=== PATIENT | female | born 2005 | race Asian ===

== ENCOUNTER 2024-01-18 22:45 | Inpatient (IN) ==
[2024-01-18] MEDS: levETIRAcetam 500 MG/5 ML VIAL IV STA (23:14)
[2024-01-18 23:15] LABS: Hematocrit (blood only) 42.3 % (37.0-47.0); Mean Corpuscular Hemoglobin 29.9 pg (25.0-34.0); Mean Corpuscular Hgb Conc 33.1 g/dL (32.0-36.0); Mean Corpuscular Volume 90.2 fL (80.0-100.0); Mean Platelet Volume 8.5 fL (9.4-12.4); Platelet Count 272 K/uL (130-400); RDW Coefficient of Variation 11.9 % (11.5-14.5); RDW Standard Deviation 38.6 fL (36.4-46.3); Red Blood Count 4.69 M/uL (4.20-5.40); White Blood Count 9.44 K/ul (4.8-10.8)
[2024-01-18] MEDS: LORazepam 1 MG/1 ML SYR ED Inj Use ONE (23:15)
[2024-01-18] MEDS: LORazepam 2 MG/1 ML VIAL IV STA (23:15)
--- NOTE | 2024-01-18 23:18 | Emergency Department Note ---
Impression & Plan Seizure, Overdose admit to the ICU ED Provider Note NAME: ARY GARCIA AGE: 18 SEX: Female INFORMANT: EMS ED PROVIDER(S): Ariane Lane DO CHIEF COMPLAINT: seizure PLAN: Disposition: admit to the ICU MEDICAL DECISION MAKING: this is a 18-year-old female patient who suffered a seizure at the library on campus. For EMS, the patient vomited a bright green substance. No other past medical history or HPI was available. Her belongings were searched and no medications were found. We attempted to contact the [place] to make contact with next of kin but she had no emergency contact listed. The patient suffered a second seizure here in the emergency department which was self-limited. She went for CT scan of the brain and facial bones. No intracranial process was noted. She had some trauma to the left side of her face but no facial bone fractures were noted. She was given a dose of IV Ativan and IV Keppra along with IV normal saline solution. Laboratory studies revealed no leukocytosis or anemia. Urine drug screen was negative. Glucose was 109. was negative. Anion gap was 14. Alcohol level was 0. Aspirin and Tylenol levels were 0. As the patient became less obtunded, she appeared to be having visual hallucinations and were picking at things that were not there. She remained tachycardic and somewhat anticholinergic. With repetitive questioning, she did admit to taking medications and stated that she had not been sleeping and took Benadryl. This presentation does seem consistent with a Benadryl overdose but will not know for sure until she is more awake. The patient remained hemodynamically stable. At one Point the patient was insistent upon getting out of the bed and was given a second dose of IV Ativan and rested more comfortably. The case was discussed with staff from the ICU as well as the [facility] Triage Nursing notes: reviewed and agree with them. Vital Signs: reviewed and remarkable for tachycardia and tachypnea Additional History obtained from: EMS Differential Diagnosis: status epilepticus, drug withdrawal, drug overdose, suicide attempt, anticholinergic response, intracranial hemorrhage, intracranial mass Diagnostics, independently interpreted by me: ECG: sinus tachycardia at a rate of [address] segment depression in inferior and lateral leads. There was no ectopy. QTc was 580 Cardiac Monitoring: Sinus tachycardia at 129 Imaging studies: CT scan of the brain: As per stat rad CT scan of the facial bones: As per stat rad HPI: 18 year old Female arrives for evaluation of seizure. suffered a seizure at the library on campus. For EMS, the patient vomited a bright green substance. No other past medical history or HPI was available. . PAST MEDICAL HISTORY: unknown due to unresponsiveness PAST SURGICAL HISTORY: unknown, SOCIAL HISTORY: [employer] student, HOME MEDICATIONS: unknown ALLERGIES: unknown VITALS: See Below PHYSICAL EXAMINATION: HEENT: Head - normocephalic With an abrasion and hematoma noted over the left orbit. Pupils are Dilated at 8 mm and only slightly reactive. Extraocular eye muscles are intact, and sclera are anicteric. patient has significant lateral nystagmus that was unprovoked. Nose - moist nasal mucosa without discharge. Mouth - moist buccal mucosa. Oropharynx is nonerythematous and there is no tonsillar exudate or edema noted. Neck: Supple; no JVD, nuchal rigidity, cervical lymphadenopathy. Heart: Tachycardic rate and regular rhythm. There is a normal S1 and S2 with no murmurs, clicks, or gallops appreciated. Lungs: Clear to auscultation bilaterally with no wheezes, rales, or rhonchi. Abdomen: Soft, completely nontender, nondistended, with good bowel sounds. There are no palpable pulsatile masses or hepatosplenomegaly. There is no guarding, rigidity, or rebound noted. Extremities: No evidence of cyanosis, clubbing, or edema. There are easily palpable peripheral pulses. Skin: warm and dry with good turgor and no rashes. Psych: At times the patient is reaching for things that are not there and appears to be having visual hallucinations. She is quite tremulous. Emergency department treatment: Seizure precautions were taken, compliance monitor, IV normal saline bolus, IV Ativan, IV Keppra, IV normal saline bolus, IV normal saline drip, IV Ativan emergency department course: The patient was evaluated in room C-7. A complete history and physical was performed. Seizure precautions were taken. Patient began to seize upon her arrival. This seizure was tonic-clonic in nature. She was given 0.5 mg of IV Ativan. A second IV lock was initiated and labs are drawn as above. A urine specimen was obtained. The patient went emergently for CT scan of her brain and facial bones. Upon returning from radiology, she was bolused with IV normal saline solution. She was loaded with IV Keppra. We made multiple attempts to identify emergency contacts for this patient. She had a toxicologic workup performed. Patient attempted to get out of the bed and was given another dose of IV Ativan. She had no further seizure activity while here in the ER. I have personally spent greater than 70 minutes of critical care time in the direct management of this patient. This includes bedside care, interpretation of diagnostic studies, and testing, discussion with consultants, patient, and family members, and other required patient management activities. This 70 minutes is in excess of all separately billable procedures. Past Med/Surg History Problem List (Updated 01/19/24 @ 17:[address] DO) Overdose (Acute) Seizure (Acute) Toxic metabolic encephalopathy Overdose Seizure Social History Smoking Status: Unknown if ever smoked Second Hand Exposure: No; Do You Dip or Chew Tobacco: No; Hx Alcohol Use: No (unable to answer) Hx Substance Use: No Preferred Language: Swiss Communication Ability: Impaired Asset Protection Greeter Required: No Beliefs That Will Affect Care: None Current Living Situation: Alone Feels Safe at Home: Yes Assistive Devices: None Allergies Allergies Allergy/AdvReac Type Severity Reaction Status Date / Time peanut Allergy Unknown Verified 01/19/24 14:52 Results & Data (ED) Vital Signs Vital Signs - 24 hr 01/18/24 22:46 01/18/24 22:55 01/18/24 23:28 Pulse Rate 133 H 133 H Pulse Rate [Right Finger] 129 H Pulse Rhythm Regular Pulse Rhythm [Right Finger] Regular Pulse Strength Normal Pulse Strength [Right Finger] Normal Respiratory Rate 37 H 37 H Respiratory Effort / Characteristics Non-Labored Non-Labored Respiratory Depth Normal Normal Respiratory Pattern Regular Regular Blood Pressure 102/76 Blood Pressure [Right Arm] 114/61 Blood Pressure Mean 84 Blood Pressure Mean [Right Arm] 78 Blood Pressure Position Lying Blood Pressure Position [Right Arm] Lying Pulse Oximetry 96 96 Oxygen Delivery Method Room Air Room Air Sepsis Recent Fever Within 48 Hours No Sepsis New/Unexplained Change in Mental Status N/A Sepsis Action Taken by Nursing Physician Notified 01/19/24 01:36 Pulse Rate Pulse Rate [Right Finger] 108 H Pulse Rhythm Pulse Rhythm [Right Finger] Regular Pulse Strength Pulse Strength [Right Finger] Normal Respiratory Rate 30 H Respiratory Effort / Characteristics Non-Labored Respiratory Depth Normal Respiratory Pattern Regular Blood Pressure Blood Pressure [Right Arm] 121/84 Blood Pressure Mean Blood Pressure Mean [Right Arm] 96 Blood Pressure Position Blood Pressure Position [Right Arm] Lying Pulse Oximetry 97 Oxygen Delivery Method Room Air Sepsis Recent Fever Within 48 Hours Sepsis New/Unexplained Change in Mental Status Sepsis Action Taken by Nursing Laboratory Data 01/18/24 22:30 01/19/24 13:05 Lab Results 01/18/24 01/18/24 01/18/24 Range/Units 22:30 23:24 23:30 WBC 9.44 (4.8-10.8) K/ul RBC 4.69 (4.20-5.40) M/uL Hgb 14.0 (12.0-16.0) g/dl Hct 42.3 (37.0-47.0) % MCV 90.2 (80.0-100.0) fL MCH 29.9 (25.0-34.0) pg MCHC 33.1 (32.0-36.0) g/dL RDW Std Deviation 38.6 (36.4-46.3) fL RDW Coeff of Rommel 11.9 (11.5-14.5) % Plt Count 272 (130-400) K/uL MPV 8.5 L (9.4-12.4) fL Sodium 137 (136-145) mmol/L Potassium 3.5 (3.5-5.1) mmol/L Chloride 106 (98-107) mmol/L Carbon Dioxide 17 L (21-32) mmol/L Anion Gap 14 H (3-11) BUN 11 (6-23) mg/dl Creatinine 0.72 (0.6-1.2) mg/dl Est Cr Clr Drug Dosing 91.3 ml/min eGFR 122.68 BUN/Creatinine Ratio 15.3 (10-20) Glucose 109 H (70-99(Fasting)) mg/dl POC Glucose 85 (70-99) mg/dl Osmolality 291 (280-300) mOsm/kg Calcium 9.2 (8.6-10.3) mg/dl Phosphorus 3.1 (2.5-4.9) mg/dl Magnesium 1.9 (1.7-2.4) mg/dl Total Bilirubin 0.4 (0.2-1.0) mg/dl Direct Bilirubin 0.1 (0-0.2) mg/dl AST 18 (13-39) U/L ALT 11 (7-52) U/L Alkaline Phosphatase 50 (34-104) U/L Troponin I High Sens (0-14) pg/ml Total Protein 7.5 (6.0-8.3) gm/dl Albumin 4.8 (3.4-5.0) gm/dl Urine Color Urine Appearance (Clear) Urine pH (4.5-7.5) Ur Specific [place] (1.000-1.030) Urine Protein (Negative) Urine Glucose (UA) (Negative) Urine Ketones (Negative) Urine Blood (Negative) Urine Nitrite (Negative) Urine Bilirubin (Negative) Urine Urobilinogen (Negative) Ur Leukocyte Esterase (Negative) Urine WBC (Auto) (0-5) /hpf Urine RBC (Auto) (0-2) /hpf U Hyaline Cast (Auto) (0-2) /lpf U Epithel Cells (Auto) (0-2) /hpf Urine Bacteria (Auto) (None Seen) Urine Test Negative (Negative) Salicylates < 3.0 L (3.0-30) mg/dl Urine Opiates Screen Neg (Neg) Ur Methadone, Qual Neg (Neg) Urine Fentanyl Screen Neg (Neg) Acetaminophen < 3 L (10-30) ug/ml Urine Barbiturates Neg (Neg) Ur Phencyclidine (PCP) Neg (Neg) U Amphetamin/Meth Scrn Neg (Neg) MDMA (Ecstasy) Screen Neg (Neg) U Benzodiazepines Scrn Neg (Neg) Ur Cocaine Metabolite Neg (Neg) U Marijuana (THC) Screen Neg (Neg) Ethyl Alcohol mg/dL (<10.0) mg/dl 01/18/24 01/19/24 Range/Units 23:37 00:00 WBC (4.8-10.8) K/ul RBC (4.20-5.40) M/uL Hgb (12.0-16.0) g/dl Hct (37.0-47.0) % MCV (80.0-100.0) fL MCH (25.0-34.0) pg MCHC (32.0-36.0) g/dL RDW Std Deviation (36.4-46.3) fL RDW Coeff of Rommel (11.5-14.5) % Plt Count (130-400) K/uL MPV (9.4-12.4) fL Sodium (136-145) mmol/L Potassium (3.5-5.1) mmol/L Chloride (98-107) mmol/L Carbon Dioxide (21-32) mmol/L Anion Gap (3-11) BUN (6-23) mg/dl Creatinine (0.6-1.2) mg/dl Est Cr Clr Drug Dosing ml/min eGFR BUN/Creatinine Ratio (10-20) Glucose (70-99(Fasting)) mg/dl POC Glucose (70-99) mg/dl Osmolality (280-300) mOsm/kg Calcium (8.6-10.3) mg/dl Phosphorus (2.5-4.9) mg/dl Magnesium (1.7-2.4) mg/dl Total Bilirubin (0.2-1.0) mg/dl Direct Bilirubin (0-0.2) mg/dl AST (13-39) U/L ALT (7-52) U/L Alkaline Phosphatase (34-104) U/L Troponin I High Sens 4.0 (0-14) pg/ml Total Protein (6.0-8.3) gm/dl Albumin (3.4-5.0) gm/dl Urine Color Yellow Urine Appearance Clear (Clear) Urine pH 5.5 (4.5-7.5) Ur Specific [place] 1.019 (1.000-1.030) Urine Protein Trace H (Negative) Urine Glucose (UA) Negative (Negative) Urine Ketones Trace H (Negative) Urine Blood 2+ H (Negative) Urine Nitrite Negative (Negative) Urine Bilirubin Negative (Negative) Urine Urobilinogen Negative (Negative) Ur Leukocyte Esterase Negative (Negative) Urine WBC (Auto) 0-5 (0-5) /hpf Urine RBC (Auto) 0-2 (0-2) /hpf U Hyaline Cast (Auto) 0-2 (0-2) /lpf U Epithel Cells (Auto) 0-2 (0-2) /hpf Urine Bacteria (Auto) None Seen (None Seen) Urine Test (Negative) Salicylates (3.0-30) mg/dl Urine Opiates Screen (Neg) Ur Methadone, Qual (Neg) Urine Fentanyl Screen (Neg) Acetaminophen (10-30) ug/ml Urine Barbiturates (Neg) Ur Phencyclidine (PCP) (Neg) U Amphetamin/Meth Scrn (Neg) MDMA (Ecstasy) Screen (Neg) U Benzodiazepines Scrn (Neg) Ur Cocaine Metabolite (Neg) U Marijuana (THC) Screen (Neg) Ethyl Alcohol mg/dL < 10.0 (<10.0) mg/dl Administered Medications Miscellaneous (Icu Protocol For Hyperglycemia) 1 each N/A ACHS KARIS Stop: 01/21/24 07:29 Last Admin: 01/19/24 12:14 Dose: Not Given Documented By: Admin: 01/19/24 08:27 Dose: Not Given Documented By: BRO Discontinued Medications Dextrose (Dextrose 50% 50 Ml Syringe) Confirm Administered Dose 50 ml IV .STK- MED ONE Stop: 01/19/24 12:00 Last Admin: 01/19/24 12:05 Dose: Not Given Documented By: BRO Dextrose (Dextrose 50% 50 Ml Syringe) 50 ml IV NOW ONE Stop: 01/19/24 12:03 Last Admin: 01/19/24 12:02 Dose: 50 ml Documented By: BRO Sodium Chloride (Nss) 500 mls @ 999 mls/hr IV .Q31M ONE Stop: 01/19/24 00:03 Last Infusion: 01/19/24 01:19 Dose: Infused Documented By: Admin: 01/18/24 23:42 Dose: 999 mls/hr Documented By: RANJIT Sodium Chloride (Nss) 500 mls @ 999 mls/hr IV .Q31M ONE Stop: 01/19/24 01:42 Last Infusion: 01/19/24 01:59 Dose: Infused Documented By: Admin: 01/19/24 01:24 Dose: 999 mls/hr Documented By: RIKA Sodium Chloride (Nss) 500 mls @ 125 mls/hr IV .Q4H KARIS Stop: 01/19/24 05:14 Last Infusion: 01/19/24 06:05 Dose: Infused Documented By: Admin: 01/19/24 01:59 Dose: 125 mls/hr Documented By: RIKA Magnesium Sulfate/Dextrose (Magnesium Sulfate / D5w) 1 gm in 100 mls @ 50 mls/hr IV Q2H KARIS Stop: 01/19/24 08:31 Last Infusion: 01/19/24 10:24 Dose: Infused Documented By: Admin: 01/19/24 08:09 Dose: 50 mls/hr Documented By: Infusion: 01/19/24 07:00 Dose: Infused Documented By: Admin: 01/19/24 05:25 Dose: 50 mls/hr Documented By: TMDarrian Lactated Ringer's (Lr) 1,000 mls @ 125 mls/hr IV .Q8H KARIS Stop: 01/19/24 20:31 Last Infusion: 01/19/24 10:22 Dose: Infused Documented By: Admin: 01/19/24 05:25 Dose: 125 mls/hr Documented By: TMG Potassium Chloride (K Cory / Wtr) 10 meq in 100 mls @ 100 mls/hr IV Q1H KARIS; Protocol Stop: 01/19/24 10:31 Last Infusion: 01/19/24 06:47 Dose: Infused Documented By: Admin: 01/19/24 06:46 Dose: Not Given Documented By: Admin: 01/19/24 05:25 Dose: 100 mls/hr Documented By: TMG Potassium Chloride (K Cory / Wtr) 10 meq in 100 mls @ 100 mls/hr IV ONE ONE; Protocol Stop: 01/19/24 07:27 Last Infusion: 01/19/24 07:32 Dose: Infused Documented By: Admin: 01/19/24 06:32 Dose: 100 mls/hr Documented By: TMG Potassium Acetate (Potassium Acetate/Nss) 10 meq in 105 mls @ 105 mls/hr IV Q1H KARIS Stop: 01/19/24 16:59 Last Admin: 01/19/24 16:41 Dose: 105 mls/hr Documented By: BRO Levetiracetam (Levetiracetam 500 Mg/5 Ml Vial) 950 mg 20 mg/kg (950 mg) IV NOW STA Stop: 01/18/24 23:04 Last Admin: 01/18/24 23:14 Dose: 950 mg Documented By: RIKA Lorazepam (Lorazepam 1 Mg/1 Ml Syr Ed Inj Use) Confirm Administered Dose 2 mg .ROUTE .STK-MED ONE Stop: 01/18/24 23:00 Last Admin: 11/11/24 23:15 Dose: Not Given Documented By: RIKA Lorazepam (Lorazepam 2 Mg/1 Ml Vial) 0.5 mg IV NOW STA Stop: 01/18/24 23:04 Last Admin: 01/18/24 23:15 Dose: 0.5 mg Documented By: RIKA Lorazepam (Lorazepam 1 Mg/1 Ml Syr Ed Inj Use) 0.5 mg IV ONE STA Stop: 01/19/24 00:13 Last Admin: 01/19/24 00:18 Dose: 0.5 mg Documented By: RIKA Imaging Data Radiologist's Impression: Head CT 01/18/24 23:03 Exam(s): CT HEAD Without Contrast EXAM: CT Head Without Intravenous Contrast CLINICAL HISTORY: Reason for exam: seizure. TECHNIQUE: Axial computed tomography images of the head/brain without intravenous contrast. CTDI is 38 mGy and DLP is 546.36 mGy-cm. Automated exposure control was utilized for the study. A dose lowering technique was utilized adhering to the principles of ALARA. COMPARISON: No relevant prior studies available. FINDINGS: Brain: Unremarkable. No hemorrhage. No significant white matter disease. No edema. Ventricles: Unremarkable. No ventriculomegaly. Bones/joints: Unremarkable. No acute fracture. Soft tissues: Unremarkable. Sinuses: Unremarkable as visualized. No acute sinusitis. Mastoid air cells: Unremarkable as visualized. No mastoid effusion. IMPRESSION: Normal head/brain CT. Electronically signed by: Pérez Jason MD 01/18/24 23:[address] 01/18/24 23:07 Exam(s): CT FACIAL Without Contrast EXAM: CT Maxillofacial Without Intravenous Contrast CLINICAL HISTORY: Reason for exam: facial trauma. TECHNIQUE: Axial computed tomography images of the face without intravenous contrast. CTDI is 36.26 mGy and DLP is 602.99 mGy-cm. Automated exposure control was utilized for the study. A dose lowering technique was utilized adhering to the principles of ALARA. COMPARISON: No relevant prior studies available. FINDINGS: Bones/joints: No acute fracture. Soft tissues: Unremarkable. Orbits: Unremarkable. Sinuses: Unremarkable. No air-fluid levels. IMPRESSION: Normal maxillofacial CT. Electronically signed by: Pérez Jason MD 01/18/24 23:26 PM Discharge Plan Visit Data Chief Complaint: Seizure Stated Complaint: SEIZURE ED Provider: Ariane Lane Discharge Problem: Seizure, Overdose Patient Disposition: Admitted As Inpatient Discharge Instructions Interventions: ED Discharge Assessment Last Done: 01/19/24 03:56
--- NOTE | 2024-01-18 23:26 | CT Scan Report ---
Exam(s): CT HEAD Without Contrast EXAM: CT Head Without Intravenous Contrast CLINICAL HISTORY: Reason for exam: seizure. TECHNIQUE: Axial computed tomography images of the head/brain without intravenous contrast. CTDI is 38 mGy and DLP is 546.36 mGy-cm. Automated exposure control was utilized for the study. A dose lowering technique was utilized adhering to the principles of ALARA. COMPARISON: No relevant prior studies available. FINDINGS: Brain: Unremarkable. No hemorrhage. No significant white matter disease. No edema. Ventricles: Unremarkable. No ventriculomegaly. Bones/joints: Unremarkable. No acute fracture. Soft tissues: Unremarkable. Sinuses: Unremarkable as visualized. No acute sinusitis. Mastoid air cells: Unremarkable as visualized. No mastoid effusion. IMPRESSION: Normal head/brain CT. Electronically signed by: Pérez Jason MD 01/18/24 23:25 PM
--- NOTE | 2024-01-18 23:27 | CT Scan Report ---
Exam(s): CT FACIAL Without Contrast EXAM: CT Maxillofacial Without Intravenous Contrast CLINICAL HISTORY: Reason for exam: facial trauma. TECHNIQUE: Axial computed tomography images of the face without intravenous contrast. CTDI is 36.26 mGy and DLP is 602.99 mGy-cm. Automated exposure control was utilized for the study. A dose lowering technique was utilized adhering to the principles of ALARA. COMPARISON: No relevant prior studies available. FINDINGS: Bones/joints: No acute fracture. Soft tissues: Unremarkable. Orbits: Unremarkable. Sinuses: Unremarkable. No air-fluid levels. IMPRESSION: Normal maxillofacial CT. Electronically signed by: Pérez Jason MD 01/18/24 23:26 PM
[2024-01-18 23:39] LABS: Albumin Level 4.8 gm/dl (3.4-5.0); BUN Creatinine Ratio 15.3 (10-20); Bilirubin Direct 0.1 mg/dl (0-0.2); Bilirubin,Total 0.4 mg/dl (0.2-1.0); Calcium 9.2 mg/dl (8.6-10.3); Creatinine Clr Calc Pharmacy 91.3 ml/min; Magnesium 1.9 mg/dl (1.7-2.4); Phosphorus 3.1 mg/dl (2.5-4.9); Potassium 3.5 mmol/L (3.5-5.1); Total Protein 7.5 gm/dl (6.0-8.3)
[2024-01-18] MEDS: SODIUM CHLORIDE 0.9% 500 ML IV ONE (23:42)
[2024-01-18 23:57] LABS: Pregnancy Test, Urine Negative (Negative)
[2024-01-19 00:04] LABS: Acetaminophen < 3 ug/ml (10-30); Salicylate < 3.0 mg/dl (3.0-30)
[2024-01-19 00:04] LABS: Amphetamines+Metham, Urine Neg (Neg); Barbiturates, Urine Neg (Neg); Benzodiazepine, Urine Neg (Neg); Cocaine, Urine Neg (Neg); Fentanyl, Urine Neg (Neg); MDMA (Ecstacy), Urine Neg (Neg); Marijuana, Urine Neg (Neg); Methadone, Urine Neg (Neg); Opiate, Urine Neg (Neg); Phencyclidine, Urine Neg (Neg)
[2024-01-19] MEDS: LORazepam 1 MG/1 ML SYR ED Inj Use IV STA (00:18)
--- NOTE | 2024-01-19 01:16 | XRay Report ---
EXAM: XR chest 1V portable CLINICAL HISTORY: EVAL FOR ASPIRATION SEIZURE JMF TECHNIQUE: X-ray image of the chest is obtained in AP portable projection. COMPARISON: No prior studies are available for comparison. FINDINGS: Pulmonary Parenchyma: Bilateral Prominent bronchovascular markings with peribronchial cuffing. No consolidation, pneumothorax. No evidence of pleural effusion or pleural thickening. Heart and Mediastinum: Borderline heart size. Straightening of left heart border. No mediastinal widening or masses. No hilar or mediastinal lymphadenopathy. Bony Thorax: The bony thorax appears intact without fractures or deformities. Soft Tissues: Soft tissues overlying the chest wall are unremarkable. IMPRESSION: 1. Bilateral prominent pulmonary bronchovascular markings with peribronchial cuffing suggested bronchiolitis/ acute bronchitis. 2. Borderline heart size. Straightening of left heart border. Further evaluation is suggested. 3. No consolidation, or pneumothorax. 4. No evidence of pleural effusion or pleural thickening. Electronically signed by Khushboo Andrade 01-19-2024 01:16 AM
[2024-01-19] MEDS: SODIUM CHLORIDE 0.9% 500 ML IV ONE (01:24)
[2024-01-19] MEDS: SODIUM CHLORIDE 0.9% 500 ML IV SCH (01:59)
--- NOTE | 2024-01-19 02:45 | History & Physical Report ---
Date of Service January 19, 2024 Assessment & Plan (1) Seizure: Plan: 18yo female with unknown medical/surgical history presenting with witnessed seizure x 2. Possible anticholinergic overdose with Benadryl. Patient tachycardic, tachypneic, agitated with muscular rigidity and nystagmus noted on arrival. She did have witnessed seizure x 2, unknown if she has a history of seizure. EKG as above with prolonged QTc interval. -Admit to MICU -Maintain Seizure precautions (2) Overdose: Plan: Suspect anticholinergic overdose with Benadryl. Urine toxicology screen is unremarkable. Patient with prolonged QTc interval -Admit to MICU -Check VBG, Lactate, serum osmolality, UA and troponin -Poison Control has been contacted and case discussed - they will continue to follow along -Monitor EKG q 6 hours -Aggressive electrolyte repletion - will keep Mg>2 and K>4 -IVF with LR at 125mL/hr x 2L -Monitor for urinary retention - Mcdowell catheter as needed -Ativan as needed for agitation - 0.5mg IV q 4 hours ordered -Maintain aspiration precautions -Suicide precautions -Psychiatry consultation appreciated F/E/N - LR at 125mL/hr x 2L, electrolyte repletion, NPO for now, advance as mental state improves Ppx - low risk for DVT Code - Full -not discussed with patient at time of admission Dispo - Admit to MICU History of Present Illness Chief Complaint: possible overdose Primary Care Provider: NO PCP Zeina Wolf is a 18yo female with unknown medical or surgical history presenting after a witnessed seizure. History obtained through discussion with ER staff as patient is unable to answer questions at this time due to somnolence/?post-ictal ?medication effects. Patient was at the [facility] earlier tonight when she became ill and vomited. She then was having a difficult time walking and was limping. She was assisted by a bystander and was lowered to the ground then had a seizure (details unavailable). EMS was contacted and patient was brought to [facility] - she reportedly received 4 doses of IV Zofran by EMS. Upon arrival to the ER patient non-verbal. She had horizontal nystagmus appreciated on intake exam. Tachycardic and tachypneic. While in the ER patient had a second seizure - tonic-clonic, described as going rigid and stiff. Seizure lasted appx 45 seconds. She was given Keppra 950mg + Ativan 0.5mg with improvement. After receiving these medications patient remained rigid and upright so was given an additional dose of Ativan 0.5mg. ER staff reports that she was able to answer some "yes" or "no" questions and possibly admitted to a Benadryl overdose During my encounter patient somnolent. Withdrawing from noxious stimuli. ER Course: Ativan 0.5mg IV x 2 Keppra 950mg IV NSS 500mg IV x 2 now at 125mL/hr Past Med/Surg History Problem List (Updated 01/19/24 @ 02:46 by Luli Granados DO) Overdose Seizure Social History Smoking Status: Unknown if ever smoked Review of Systems Review of Systems: Unobtainable due to reduced consciousness Physical Exam Physical Exam: General: patient somnolent, withdrawing from noxious stimuli Skin: warm, dry, abrasion present on left forehead HEENT: PERRL, mild horizontal nystagmus appreciated, anicteric sclera, conjunctiva without injection, external ear normal to inspection and nontender, no hemotympanum, no Battles sign, nares patent, DRY mucus membranes, dentition intact, no oropharyngeal lesions, neck supple, trachea midline, no LAD, no thyromegaly, no JVD Heart: +S1/S2, regular tachycardic, no m/r/g Lungs: equal air entry bilaterally, tachypneic, no rales/rhonchi/wheezes Abd: +BS, soft, ND, no masses/organomegaly/ascites Ext: warm, 2+ pulses in UE/LE bilaterally, no clubbing/cyanosis or edema Neuro: somnolent, withdrawing from noxious stimuli Results & Data Results & Data Vital Signs (Past 12 Hours) Vital Signs Pulse Pulse Resp BP BP Pulse Ox O2 Del Method 01/19/24 01:36 108 H 30 H 121/84 97 Room Air 01/18/24 23:28 129 H 37 H 114/61 96 Room Air 01/18/24 22:55 133 H 01/18/24 22:46 133 H 37 H 102/76 96 Room Air Laboratory Results Laboratory Results WBC 9.44 K/ul (4.8-10.8) 01/18/24 22:30 RBC 4.69 M/uL (4.20-5.40) 01/18/24 22:30 Hgb 14.0 g/dl (12.0-16.0) 01/18/24 22:30 Hct 42.3 % (37.0-47.0) 01/18/24 22:30 MCV 90.2 fL (80.0-100.0) 01/18/24 22:30 MCH 29.9 pg (25.0-34.0) 01/18/24 22: MCHC 33.1 g/dL (32.0-36.0) 01/18/24 22:30 RDW Std Deviation 38.6 fL (36.4-46.3) 01/18/24 22:30 RDW Coeff of Rommel 11.9 % (11.5-14.5) 01/18/24 22:30 Plt Count 272 K/uL (130-400) 01/18/24 22:30 MPV 8.5 fL (9.4-12.4) L 01/18/24 22:30 Sodium 137 mmol/L (136-145) 01/18/24 22:30 Potassium 3.5 mmol/L (3.5-5.1) 01/18/24 22:30 Chloride 106 mmol/L (98-107) 01/18/24 22:30 Carbon Dioxide 17 mmol/L (21-32) L 01/18/24 22:30 Anion Gap 14 (3-11) H 01/18/24 22:30 BUN 11 mg/dl (6-23) 01/18/24 22:30 Creatinine 0.72 mg/dl (0.6-1.2) 01/18/24 22:30 Est Cr Clr Drug Dosing 91.3 ml/min 01/18/24 22:30 eGFR 122.68 01/18/24 22:30 BUN/Creatinine Ratio 15.3 (10-20) 01/18/24 22:30 Glucose 109 mg/dl (70-99(Fasting)) H 01/18/24 22:30 POC Glucose 85 mg/dl (70-99) 01/18/24 23:30 Osmolality 291 mOsm/kg (280-300) 01/18/24 22:30 Calcium 9.2 mg/dl (8.6-10.3) 01/18/24 22:30 Phosphorus 3.1 mg/dl (2.5-4.9) 01/18/24 22:30 Magnesium 1.9 mg/dl (1.7-2.4) 01/18/24 22:30 Total Bilirubin 0.4 mg/dl (0.2-1.0) 01/18/24 22:30 Direct Bilirubin 0.1 mg/dl (0-0.2) 01/18/24 22:30 AST 18 U/L (13-39) 01/18/24 22:30 ALT 11 U/L (7-52) 01/18/24 22:30 Alkaline Phosphatase 50 U/L (34-104) 01/18/24 22:30 Total Protein 7.5 gm/dl (6.0-8.3) 01/18/24 22:30 Albumin 4.8 gm/dl (3.4-5.0) 01/18/24 22:30 Urine Test Negative (Negative) 01/18/24 23:24 Salicylates < 3.0 mg/dl (3.0-30) L 01/18/24 22:30 Urine Opiates Screen Neg (Neg) 01/18/24 23:24 Ur Methadone, Qual Neg (Neg) 01/18/24 23:24 Urine Fentanyl Screen Neg (Neg) 01/18/24 23:24 Acetaminophen < 3 ug/ml (10-30) L 01/18/24 22:30 Urine Barbiturates Neg (Neg) 01/18/24 23:24 Ur Phencyclidine (PCP) Neg (Neg) 01/18/24 23:24 U Amphetamin/Meth Scrn Neg (Neg) 01/18/24 23:24 MDMA (Ecstasy) Screen Neg (Neg) 01/18/24 23:24 U Benzodiazepines Scrn Neg (Neg) 01/18/24 23:24 Ur Cocaine Metabolite Neg (Neg) 01/18/24 23:24 U Marijuana (THC) Screen Neg (Neg) 01/18/24 23:24 Ethyl Alcohol mg/dL < 10.0 mg/dl (<10.0) 01/18/24 23:[address] 01/18/24 23:03 Exam(s): CT HEAD Without Contrast EXAM: CT Head Without Intravenous Contrast CLINICAL HISTORY: Reason for exam: seizure. TECHNIQUE: Axial computed tomography images of the head/brain without intravenous contrast. CTDI is 38 mGy and DLP is 546.36 mGy-cm. Automated exposure control was utilized for the study. A dose lowering technique was utilized adhering to the principles of ALARA. COMPARISON: No relevant prior studies available. FINDINGS: Brain: Unremarkable. No hemorrhage. No significant white matter disease. No edema. Ventricles: Unremarkable. No ventriculomegaly. Bones/joints: Unremarkable. No acute fracture. Soft tissues: Unremarkable. Sinuses: Unremarkable as visualized. No acute sinusitis. Mastoid air cells: Unremarkable as visualized. No mastoid effusion. IMPRESSION: Normal head/brain CT. Electronically signed by: Pérez Jason MD 01/18/24 23:[address] 01/18/24 23:07 Exam(s): CT FACIAL Without Contrast EXAM: CT Maxillofacial Without Intravenous Contrast CLINICAL HISTORY: Reason for exam: facial trauma. TECHNIQUE: Axial computed tomography images of the face without intravenous contrast. CTDI is 36.26 mGy and DLP is 602.99 mGy-cm. Automated exposure control was utilized for the study. A dose lowering technique was utilized adhering to the principles of ALARA. COMPARISON: No relevant prior studies available. FINDINGS: Bones/joints: No acute fracture. Soft tissues: Unremarkable. Orbits: Unremarkable. Sinuses: Unremarkable. No air-fluid levels. IMPRESSION: Normal maxillofacial CT. Electronically signed by: Pérez Jason MD 01/18/24 23:26 PM Chest X-Ray 01/18/24 23:44 EXAM: XR chest 1V portable CLINICAL HISTORY: EVAL FOR ASPIRATION SEIZURE JMF TECHNIQUE: X-ray image of the chest is obtained in AP portable projection. COMPARISON: No prior studies are available for comparison. FINDINGS: Pulmonary Parenchyma: Bilateral Prominent bronchovascular markings with peribronchial cuffing. No consolidation, pneumothorax. No evidence of pleural effusion or pleural thickening. Heart and Mediastinum: Borderline heart size. Straightening of left heart border. No mediastinal widening or masses. No hilar or mediastinal lymphadenopathy. Bony Thorax: The bony thorax appears intact without fractures or deformities. Soft Tissues: Soft tissues overlying the chest wall are unremarkable. IMPRESSION: 1. Bilateral prominent pulmonary bronchovascular markings with peribronchial cuffing suggested bronchiolitis/ acute bronchitis. 2. Borderline heart size. Straightening of left heart border. Further evaluation is suggested. 3. No consolidation, or pneumothorax. 4. No evidence of pleural effusion or pleural thickening. Electronically signed by Khushboo Andrade 01-19-2024 01:16 AM ECG Additional Comments: EKG with ST at 133bpm, HQ=038, QRS=84, QUu=474, rightward axis, ST depressions PG Care Time/CCT Total # of Minutes Spent Total Time Spent with Patient: Total time spent is greater than 50% in coordination of care (as documented) at patient's floor/unit and/or counseling patient: Coding Level of Care Code 35278 INT INP/OBS CARE 3/75MIN Diagnoses Seizure R56.9 Overdose T50.901A
[2024-01-19 02:48] LABS: Base Excess VBG -5.6 mEq/L; HCO3 VBG 22 mmol/L; Oxygen Saturation VBG 82.1 %; PCO2 VBG 50 mmHg (38-50); PO2 VBG 53 mmHg; pH VBG 7.25 (7.36-7.41)
--- NOTE | 2024-01-19 02:52 | Critical Care Consultation ---
Date of Consultation January 19, 2024 Assessment & Plan (1) Overdose: (2) Seizure: Plan Reason Critically Ill: Seizure activity in presumed Benadryl overdose/cholinergic syndrome Neuro - Seizure like activity with possible presumed Benadryl overdose [facility] ICU: [facility] - Seizure x3 - 45 second tonic clonic reported broke x3 with Ativan and loaded with Keppra - Reportedly was awake and did move all extremities and verbal following episode - but remained with agitation, delirium, and picking/pulling at things in the air - Unable to verify ingestion or amount- poison control contacted - Replete electrolytes, continue hydration and supportive care - If patient seizes again would reach out to tertiary center for eval of continued monitoring - Bladder scans with catheterization if needed - Opsoclonus is improved - Tox screen negative, Salicylates and Tylenol negative - VBG 7.25, 50, 53, 22- Place EtCO2 on - Head CT negative - Follow clinical course- consider physostigmine if worsens- follow QT and QRS Cardiac - Prolonged Qtc - Replete Magnesium and Potassium - Follow supportive care as above Respiratory - Respiratory acidosis - likely secondary to sedative effects of benzodiazepine - repeat VBG in 1-2 hours - in conjunction with EtCO2 monitoring - intubation vs. physostigmine if support needed GI - follow for ileus - NPO for now RENAL/LYTES - metabolic and respiratory acidosis - As above, Gap is 14 normal and should decrease with electrolyte replacements - Serum Osmol 291 - osmolar gap 7 likely no other toxic alcohol ingestion - As above, bladder scans cath if needed for retention ENDO - NO acute needs HEME - No acute needs ID - No concern for infective cause at this time LINES/IV ACCESS - PIV Continue use of these lines DVT PROPHYLAXIS - SCDS DISPO: ICU until mental state improves and no further seizure activity, may need agitation management as clinical course progresses I have personally spent 35 minutes of critical care time in the direct management of this patient. This is a life/limb threatening event. This includes time spent evaluating patient, direct bedside care, chart review, placing orders, interpretation of diagnostic studies, discussion with consultants, patient, and family members, as well as other required patient management activities. This time is exclusive of all separately billable procedures, and teaching time and separate from and in addition to any other critical care service time. Thank you for allowing us to participate in the care of this patient. Please refer to my attending physician's documentation for any further recommendations. Supervising Physician Co-Signing Physician Notes I have personally evaluated and examined this patient. I agree with assessment and plan of Tricia ADAMS. During my evaluation patient was still hallucinating and responding to internal stimuli. Mildly redirectable. Appears most consistent with anticholinergic overdose. Optimizing electrolytes continued ICU observation. History of Present Illness Reason for Consultation: possible overdose with seizure activity Requesting Physician: Luli Granados DO Attending Physician: Luli Shelton DO History of Present Illness 18 YOF currently attending the [employer] [facility]. She was brought to the ER tonight via EMS from the library, where she was reportedly walking weird and then helped to ground, where she then seized. She was given Ativan by EMS. In the ER patient was noted to be agitated, pulling and picking at items, was noted with nystagmus as well- she then proceeded to have 2 other seizures while there. She was again given Ativan with resolution of symptoms. She reportedly had one brief period of lucidity where she was able to communicate and through some questioning reported that she has not slept and when asked if she took anything to sleep she said yes and when asked if it was Benadryl she said yes. She received a total of 3mg of Ativan and 950mg of Keppra and 1liter of crystalloid. Hospitalist was consulted for admission and ICU was consulted for continued monitoring. Recommended discussion with poison control, check PH, salicylates, asa, and magnesium level as well as continued crystalloid infusion. Patient was evaluated in the ER in room C7 and case discussed with ER attending as well as admitting Attending. Patient is somnolent at this time, groans to tickling of her feet, and opens eyes with noxious stimuli. Will follow overnight and continue supportive care, will consider transfer if siezes again or worsens. CODE: FULL Patient History Social History Smoking Status: Unknown if ever smoked Second Hand Exposure: No; Do You Dip or Chew Tobacco: No; Hx Alcohol Use: No (unable to answer) Hx Substance Use: No Preferred Language: Kinyarwanda Communication Ability: Effective [employer] Required: No Beliefs That Will Affect Care: None Current Living Situation: Alone Feels Safe at Home: Yes Assistive Devices: None Review of Systems Review of Systems: unable to perform secondary to sedative effects/encephalopathy Physical Exam Physical Exam: PHYSICAL EXAM: General: somnolent Head: Normocephalic, abrasions to cheek and side of eye ENT: PERRLA- 5/4 sluggish, horizontal nystagmus Neuro: GCS 8, (E2, V2, M4), non rigid, Chest: equal rise and fall of the chest, no accessory muscle use, no heaves or thrills, Clear to auscultation, on room air, Cardiac: Regular rate and rhythm, telemetry reviewed- sinus tachycardia no ectopy, skin warm dry, cap refill <3 seconds, peripheral pulses +2 no JVD, no edema GI: NABS x 4 quadrants, soft, nontender to palpation, no rebound, guarding or tenderness : void pending Results & Data Results & Data Vital Signs (Past 12 Hours) Vital Signs Pulse Pulse Resp BP BP Pulse Ox O2 Del Method 01/19/24 01:36 108 H 30 H 121/84 97 Room Air 01/18/24 23:28 129 H 37 H 114/61 96 Room Air 01/18/24 22:55 133 H 01/18/24 22:46 133 H 37 H 102/76 96 Room Air Laboratory Results Abnormal lab results 01/18/24 01/19/24 Range/Units 22:30 02:35 MPV 8.5 L (9.4-12.4) fL VBG pH 7.25 L (7.36-7.41) Carbon Dioxide 17 L (21-32) mmol/L Anion Gap 14 H (3-11) Glucose 109 H (70-99(Fasting)) mg/dl Salicylates < 3.0 L (3.0-30) mg/dl Acetaminophen < 3 L (10-30) ug/ml Diagnostic Findings Head CT 01/18/24 23:03 Exam(s): CT HEAD Without Contrast EXAM: CT Head Without Intravenous Contrast CLINICAL HISTORY: Reason for exam: seizure. TECHNIQUE: Axial computed tomography images of the head/brain without intravenous contrast. CTDI is 38 mGy and DLP is 546.36 mGy-cm. Automated exposure control was utilized for the study. A dose lowering technique was utilized adhering to the principles of ALARA. COMPARISON: No relevant prior studies available. FINDINGS: Brain: Unremarkable. No hemorrhage. No significant white matter disease. No edema. Ventricles: Unremarkable. No ventriculomegaly. Bones/joints: Unremarkable. No acute fracture. Soft tissues: Unremarkable. Sinuses: Unremarkable as visualized. No acute sinusitis. Mastoid air cells: Unremarkable as visualized. No mastoid effusion. IMPRESSION: Normal head/brain CT. Electronically signed by: Pérez Jason MD 01/18/24 23:[address] 01/18/24 23:07 Exam(s): CT FACIAL Without Contrast EXAM: CT Maxillofacial Without Intravenous Contrast CLINICAL HISTORY: Reason for exam: facial trauma. TECHNIQUE: Axial computed tomography images of the face without intravenous contrast. CTDI is 36.26 mGy and DLP is 602.99 mGy-cm. Automated exposure control was utilized for the study. A dose lowering technique was utilized adhering to the principles of ALARA. COMPARISON: No relevant prior studies available. FINDINGS: Bones/joints: No acute fracture. Soft tissues: Unremarkable. Orbits: Unremarkable. Sinuses: Unremarkable. No air-fluid levels. IMPRESSION: Normal maxillofacial CT. Electronically signed by: Pérez Jason MD 01/18/24 23:26 PM Chest X-Ray 01/18/24 23:44 EXAM: XR chest 1V portable CLINICAL HISTORY: EVAL FOR ASPIRATION SEIZURE JMF TECHNIQUE: X-ray image of the chest is obtained in AP portable projection. COMPARISON: No prior studies are available for comparison. FINDINGS: Pulmonary Parenchyma: Bilateral Prominent bronchovascular markings with peribronchial cuffing. No consolidation, pneumothorax. No evidence of pleural effusion or pleural thickening. Heart and Mediastinum: Borderline heart size. Straightening of left heart border. No mediastinal widening or masses. No hilar or mediastinal lymphadenopathy. Bony Thorax: The bony thorax appears intact without fractures or deformities. Soft Tissues: Soft tissues overlying the chest wall are unremarkable. IMPRESSION: 1. Bilateral prominent pulmonary bronchovascular markings with peribronchial cuffing suggested bronchiolitis/ acute bronchitis. 2. Borderline heart size. Straightening of left heart border. Further evaluation is suggested. 3. No consolidation, or pneumothorax. 4. No evidence of pleural effusion or pleural thickening. Electronically signed by Khushboo Andrade 01-19-2024 01:16 AM Medications Administered Active Medications Sodium Chloride (Nss) 500 mls @ 125 mls/hr IV .Q4H KARIS Stop: 01/19/24 05:14 Last Admin: 01/19/24 01:59 Dose: 125 mls/hr ECG Additional Comments: Sinus tachycardiawith short [place] Rightward axis ST depression, consider subendocardial injury Abnormal ECG No previous ECGs available QT/Qtc-382/568 Coding Level of Care Code 34793 CRITICAL CARE 1ST 30-74M Diagnoses Overdose T50.901A Seizure R56.9
[2024-01-19 03:26] LABS: Appearance Urine Clear (Clear); Bacteria Urine Automated None Seen (None Seen); Bilirubin Urine Negative (Negative); Blood Urine 2+ (Negative); Cast Urine Automated 0-2 /lpf (0-2); Color Urine Yellow; Epithelial Cell Urine Auto 0-2 /hpf (0-2); Glucose Urine UA Negative (Negative); Ketones Urine Trace (Negative); Leukocyte Esterase Urine Negative (Negative); Nitrite Urine Negative (Negative); Protein Urine Trace (Negative); RBC Urine Automated 0-2 /hpf (0-2); Specific Gravity Urine 1.019 (1.000-1.030); Urobilinogen Urine Negative (Negative); WBC Urine Automated 0-5 /hpf (0-5); pH Urine 5.5 (4.5-7.5)
[2024-01-19 04:31] LABS: Base Excess VBG -5.1 mEq/L; HCO3 VBG 22 mmol/L; Oxygen Saturation VBG 82.8 %; PCO2 VBG 48 mmHg (38-50); PO2 VBG 52 mmHg; pH VBG 7.27 (7.36-7.41)
[2024-01-19] MEDS ORDERED: ACETAMINOPHEN 325 MG TAB PO PRN (04:32)
[2024-01-19] MEDS ORDERED: LORazepam 2 MG/1 ML VIAL IV PRN (04:32)
[2024-01-19 05:00] LABS: INR 1.1 (0.9-1.1); Prothrombin Time 11.4 Seconds (9.0-12.0)
[2024-01-19 05:13] LABS: Magnesium 1.9 mg/dl (1.7-2.4)
[2024-01-19] MEDS: LACTATED RINGER'S 1,000 ML IV SCH (05:25)
[2024-01-19] MEDS: POTASSIUM CHLORIDE / WTR 10 MEQ/100 ML PLCT IV SCH (05:25)
[2024-01-19] MEDS: MAGNESIUM SULFATE / D5W 1 GM/100 ML BAG IV SCH (05:25)
[2024-01-19 05:42] LABS: Calcium 8.4 mg/dl (8.6-10.3); Creatinine Clr Calc Pharmacy 115.3 ml/min; Potassium 3.9 mmol/L (3.5-5.1)
[2024-01-19] MEDS: POTASSIUM CHLORIDE / WTR 10 MEQ/100 ML PLCT IV ONE (06:32)
[2024-01-19] MEDS: ICU Protocol for HYPERglycemia SCH (08:27)
--- NOTE | 2024-01-19 09:07 | Hospitalist Progress Note ---
Date of Service January 19, 2024 Assessment & Plan (1) Seizure: Plan: 18yo female with unknown medical/surgical history presenting with witnessed seizure x 2 at library and one additional in ED. No further seizures after benzodiazepines and levetiracetam. Possible toxidrome. -her father reports no history of epilepsy -continue seizure precautions (2) Toxic metabolic encephalopathy: Plan: possible anticholinergic toxicity, last night said that she had taken a sleeping medicine - benadryl? unable to get any further collateral information at this time other than she said she does not take any prescription medications improved since yesterday, no longer tachycardic remains tremulous, continues to have apparent visual hallucinations, speech is becoming more understandable but still often garbled and rapid based on physiology seems most compatible with anticholinergic toxicity perhaps from ingestion of Benadryl, other toxidromes are possible, UDS was negative as was APAP, salicylate and there was nothing in the PDMP monitor telemetry and QTc which has improved from 580 down to 500 she had acute urinary retention bladder scan 980, Mcdowell catheter placed 01/18 continue aspiration precautions, electrolyte replacement, supportive care no infectious signs or symptoms suspicion for meningitis is low, further testing warranted if not steadily improving Plan possibility of intentional overdose/SA? no known psychiatric history - discussed with psychiatrist Dr. Aparicio, will obtain further collateral history when possible - currently has 1:1 PSA DVT ppx - SCDs, start enoxaparin tomorrow if not yet ambulatory discussed with Dr. Muñiz, [employer] we were able to obtain her parents phone number from [employer], I called and spoke with her father who will come in. She has no medical history except for a peanut allergy. Admission and Anticipated Discharge Date Admission Date: January 19, 2024 Subjective Remains confused and appears to have visual hallucination Speech is a bit more intelligible this afternoon compared to this morning this morning said her stomach hurt, later found to have acute urinary retention no further seizures no emesis Physical Exam 2 Physical Exam: PHYSICAL EXAMINATION Last 24h vital signs reviewed, see documentation in flowsheet General: comfortable appearing, no distress HEENT: Normocephalic, atraumatic, pupils round and equal, sclerae anicteric, no conjunctival injection, moist mucus membranes Lungs: Normal respiratory effort. Clear to auscultation bilaterally. No RRW Heart: Regular rate and rhythm, no murmurs. No JVD Abdomen: Soft, mildly tender without rebound rigidity or guarding. Bowel sounds present. Extremities: Warm, dry, well-perfused. No extremity edema. Neuro: Alert and confused, oriented x 1, speech is rapid and often garbled, appears to have visual hallucinations, remains tremulous no rigidity, face symmetric, moves 4 extremities well Psych: speaks rapidly, unable to assess Results & Data Results & Data Vital Signs (Past 12 Hours) Vital Signs Temp Pulse Pulse Resp BP BP Pulse Ox 01/19/24 08:00 99 H 24 115/80 100 01/19/24 08:00 36.4 C L 01/19/24 07:00 98 H 27 H 124/93 100 01/19/24 06:06 106 H 24 128/93 100 01/19/24 05:30 99 H 27 H 122/85 100 01/19/24 04:39 100 H 27 H 100 01/19/24 04:32 01/19/24 03:56 87 24 118/92 99 01/19/24 03:20 102 H 22 131/98 991 H 01/19/24 03:04 103 H 20 122/88 100 01/19/24 02:55 96 H 01/19/24 01:36 108 H 30 H 121/84 97 01/18/24 23:28 129 H 37 H 114/61 96 01/18/24 22:55 133 H 01/18/24 22:46 133 H 37 H 102/76 96 O2 Del Method O2 Del Method 01/19/24 08:00 01/19/24 08:00 01/19/24 07:00 Room Air 01/19/24 06:06 01/19/24 05:30 01/19/24 04:39 01/19/24 04:32 Room Air 01/19/24 03:56 Room Air 01/19/24 03:20 01/19/24 03:04 Room Air 01/19/24 02:55 01/19/24 01:36 Room Air 01/18/24 23:28 Room Air 01/18/24 22:55 01/18/24 22:46 Room Air Laboratory Results 01/18/24 22:30 01/19/24 13:05 PG Care Time/CCT Total # of Minutes Spent Total Time Spent with Patient: Total time spent is greater than 50% in coordination of care (as documented) at patient's floor/unit and/or counseling patient: Coding Level of Care Code 12407 SUB INP/OBS CARE 350MIN Diagnoses Seizure R56.9 Toxic metabolic encephalopathy G92.8
[2024-01-19 10:18] LABS: BUN Creatinine Ratio 7.6 (10-20); Calcium 8.8 mg/dl (8.6-10.3); Creatinine Clr Calc Pharmacy 99.6 ml/min; Magnesium 2.6 mg/dl (1.7-2.4)
--- NOTE | 2024-01-19 10:43 | Psychiatric Consultation ---
Date of Consultation January 19, 2024 Impression / Recommendations Impression Diagnostically unclear if seizure events and reported emesis/weakness observed on campus are consistent with possible suicide attempt/intention ingestion. UDS negative so low suspicion for substance-induced cause at this point but possible that she could have used a synthetic substance, nitrous oxide or other recreational ingestion that would not typically appear on UDS and therefore should remain as possibility on our differential. Will continue to follow closely until she can provide more history about recent events and possible ingestion/suicide attempt vs substance-induced vs alternative medical cause. Agree with 1-on-1 and safety precautions for now given unclear details surrounding events leading to admission. Overall, I spent a total of 45 minutes with this case including review of chart records, review of labwork, direct evaluation of the patient at bedside, counseling the patient, discussion of the patient with the hospitalist provider, discussion with the psychiatric liason during clinical rounds and documentation in the electronic health record. (1) Toxic metabolic encephalopathy: (2) Seizure: Plan -Continue 1-on-1 and safety precautions -Psychiatry will continue to follow and re-assess once she is better able to participate in assessment -Encourage use of a communication board or other strategies until she is better able to verbalize her needs Psych History Identifying Data 18 yo woman and [employer] student admitted medically following seizure of unknown cause but with concern for possible ingestion. Psychiatry consulted for risk assessment/recommendations. Chief Complaint mumbled History of Present Illness Zeina is alert but mumbling and speaking softly so could not understand her attempts to communicate. Attempts to allow her to communicate using pen and paper were unsuccessful as she couldn't hold the pen. History per chart review. Seems she was at the [employer] library and witnessed to vomit, limp and then have a seizure. She was brought to the hospital via EMS and was non-verbal with nystagmus. Had tonic clonic activity in ED suspected to be a second seizure event and admitted. Per notes she apparently reported recent sleep issues and that she took Benadryl. Unclear if she consumed anything in excess or as part of a suicide attempt. UDS negative. Patient History Social History Smoking Status: Unknown if ever smoked Second Hand Exposure: No; Do You Dip or Chew Tobacco: No; Hx Alcohol Use: No (unable to answer) Hx Substance Use: No Preferred Language: Divehi Communication Ability: Effective Backpackers Manager Required: No Beliefs That Will Affect Care: None Current Living Situation: Alone Feels Safe at Home: Yes Assistive Devices: None Physical Exam Psychiatric: Orientation: alert Apperance: + disheveled Eye Contact: + fair eye contact Speech: + abnormal rate/rhythm/volume of speech (garbled, soft) Affect: + anxious affect Vital Signs (Past 24 Hours): Last Vital Signs Temp 36.4 C L 01/19/24 08:00 Pulse 101 H 01/19/24 10:18 Resp 0 L 01/19/24 10:18 BP 107/69 01/19/24 10:18 Pulse Ox 100 01/19/24 10:18 O2 Del Method Room Air 01/19/24 07:00 Results & Data (PSY) Medications Administered Miscellaneous (Icu Protocol For Hyperglycemia) 1 each N/A ACHS KARIS Stop: 01/21/24 07:29 Last Admin: 01/19/24 08:27 Dose: Not Given Documented By: BRO Coding Level of Care Code 03444 IN/OBS CONSULT LVL 3,45M Diagnoses Toxic metabolic encephalopathy G92.8 Seizure R56.9
[2024-01-19] MEDS: DEXTROSE 50% 50 ML SYRINGE IV ONE ×3 (12:02→18:22)
[2024-01-19 13:46] LABS: BUN Creatinine Ratio 7.6 (10-20); Calcium 8.6 mg/dl (8.6-10.3); Creatinine Clr Calc Pharmacy 99.6 ml/min; Magnesium 2.3 mg/dl (1.7-2.4); Potassium 3.9 mmol/L (3.5-5.1)
[2024-01-19] MEDS: POTASSIUM ACETATE/NSS 10 MEQ/105 ML BAG IV SCH (16:41)
[2024-01-19 18:10] LABS: BUN Creatinine Ratio 8.3 (10-20); Calcium 8.7 mg/dl (8.6-10.3); Creatinine Clr Calc Pharmacy 91.3 ml/min; Magnesium 2.2 mg/dl (1.7-2.4); Potassium 4.2 mmol/L (3.5-5.1)
[2024-01-19] MEDS: D5W AND LACTATED RINGERS 1,000 ML IV SCH (18:15)
[2024-01-19] MEDS: DEXTROSE 50% 50 ML SYRINGE IV STA (18:21)
[2024-01-19 22:02] LABS: BUN Creatinine Ratio 8.8 (10-20); Calcium 8.5 mg/dl (8.6-10.3); Creatinine Clr Calc Pharmacy 96.7 ml/min
[2024-01-20 04:28] LABS: Hematocrit (blood only) 35.4 % (37.0-47.0); Hemoglobin 11.9 g/dl (12.0-16.0); Mean Corpuscular Hemoglobin 30.3 pg (25.0-34.0); Mean Corpuscular Hgb Conc 33.6 g/dL (32.0-36.0); Mean Corpuscular Volume 90.1 fL (80.0-100.0); Mean Platelet Volume 8.5 fL (9.4-12.4); Platelet Count 217 K/uL (130-400); RDW Standard Deviation 39.5 fL (36.4-46.3); Red Blood Count 3.93 M/uL (4.20-5.40); White Blood Count 8.21 K/ul (4.8-10.8)
[2024-01-20 04:40] LABS: Calcium 8.4 mg/dl (8.6-10.3); Creatinine Clr Calc Pharmacy 84.3 ml/min; Potassium 3.8 mmol/L (3.5-5.1)
[2024-01-20] MEDS: POTASSIUM CHLORIDE 20 MEQ/15 ML UDC PO STA (05:10)
--- NOTE | 2024-01-20 09:35 | Critical Care Progress Note ---
Date of Service January 20, 2024 Assessment & Plan (1) Overdose: (2) Seizure: Plan Reason Critically Ill: Seizure activity in presumed Benadryl overdose/cholinergic syndrome Neuro - Seizure like activity with possible presumed Benadryl overdose: Improved -T for 2 outpatient neurology regarding possible seizure-like activity, given the strong toxidrome I feel the events are related to medication overdose -Father expressing concern of patient not being able to sleep and would like to hopefully have some medication to assist with sleep prescribed at some point in the near future -Certainly sleep deprivation can lower seizure threshold however from my standpoint the toxidrome appears to be the most likely cause of the altered mental status Cardiac - Prolonged Qtc: Resolved Respiratory - Respiratory acidosis resolved GI -tolerating diet -can discontinue Mcdowell, acute urinary retention was likely secondary to anticholinergic toxidrome ENDO - NO acute needs HEME - No acute needs ID - No concern for infective cause at this time LINES/IV ACCESS - PIV Continue use of these lines DVT PROPHYLAXIS - SCDS DISPO: Patient is medically cleared and stable for downgrade out of ICU. Admission and Anticipated Discharge Date Admission Date: January 19, 2024 Subjective Patient feels well. Reports she took 2 tablets of a sleeping aid, unsure what the sleeping aid was. She reports that she is under the understanding that she had a seizure prior to her admission to the critical care unit. Father was at the bedside answered their questions. From medical standpoint she appears to be medically stable for downgrade out of the ICU, she still has a mental health evaluation regarding the probable medication overdose. Physical Exam Physical Exam: General: Alert. nontoxic. Skin: Warm, dry, Head: Atraumatic Eyes: Nystagmus no longer present Ears, nose, mouth and throat: airway patent Cardiovascular: Normal peripheral perfusion Respiratory: no respiratory distress Gastrointestinal: Non distended Musculoskeletal: No deformity Results & Data Results & Data Vital Signs (Past 12 Hours) Vital Signs Temp Pulse Resp BP Pulse Ox O2 Del Method O2 Del Method 01/20/24 06:12 103/68 01/20/24 05:00 67 23 104/63 98 01/20/24 04:46 36.3 C L 01/20/24 04:32 Room Air 01/20/24 04:03 70 20 104/59 L 96 01/20/24 03:00 65 25 H 104/65 98 01/20/24 02:00 67 16 104/69 96 01/20/24 01:24 64 01/20/24 01:23 36.6 C 01/20/24 01:00 66 16 95/55 L 99 01/20/24 00:06 65 25 H 99 01/19/24 23:14 67 16 93/62 L 98 Room Air 01/19/24 23:03 67 17 98 01/19/24 22:03 70 17 101/71 97 Critical Care Results & Data Vital Signs (Past 12 Hours) Vital Signs Temp Pulse Resp BP Pulse Ox O2 Del Method O2 Del Method 01/20/24 06:12 103/68 01/20/24 05:00 67 23 104/63 98 01/20/24 04:46 36.3 C L 01/20/24 04:32 Room Air 01/20/24 04:03 70 20 104/59 L 96 01/20/24 03:00 65 25 H 104/65 98 01/20/24 02:00 67 16 104/69 96 01/20/24 01:24 64 01/20/24 01:23 36.6 C 01/20/24 01:00 66 16 95/55 L 99 01/20/24 00:06 65 25 H 99 01/19/24 23:14 67 16 93/62 L 98 Room Air 01/19/24 23:03 67 17 98 01/19/24 22:03 70 17 101/71 97 Lab & Micro Results (Past 24 Hours) RBC 3.93 M/uL (4.20-5.40) L 01/20/24 WBC 8.21 K/ul (4.8-10.8) 01/20/24 Hgb 11.9 g/dl (12.0-16.0) L 01/20/24 Hct 35.4 % (37.0-47.0) L 01/20/24 MCV 90.1 fL (80.0-100.0) 01/20/24 MCH 30.3 pg (25.0-34.0) 01/20/24 MCHC 33.6 g/dL (32.0-36.0) 01/20/24 RDW Standard Deviation 39.5 fL (36.4-46.3) 01/20/24 RDW Coefficient of Variation 12.0 % (11.5-14.5) 01/20/24 Plt Count 217 K/uL (130-400) 01/20/24 MPV 8.5 fL (9.4-12.4) L 01/20/24 Na 139 mmol/L (136-145) 01/20/24 K 3.8 mmol/L (3.5-5.1) 01/20/24 Cl 109 mmol/L (98-107) H 01/20/24 CO2 28 mmol/L (21-32) 01/20/24 Anion Gap 2 (3-11) L 01/20/24 BUN 7 mg/dl (6-23) 01/20/24 Creatinine 0.78 mg/dl (0.6-1.2) 01/20/24 BUN/Creatinine Ratio 9.0 (10-20) L 01/20/24 Glu 93 mg/dl (70-99(Fasting)) 01/20/24 Ca 8.4 mg/dl (8.6-10.3) L 01/20/24 Mg 2.0 mg/dl (1.7-2.4) 01/20/24 04:04 Calcium Level 8.4 mg/dl (8.6-10.3) L 01/20/24 04:04 I & O Totals 24 Hours 01/19/24 01/20/24 01/21/24 06:59 06:59 06:59 Intake Total 1600 / 0632.794 4034.417 / 2104.417 Output Total 1150 / 1150 1925 / 1925 Balance 450 / 529.167 179.417 / 179.417 Cumulative 01/18/24 22:42 thru 01/20/24 06:36 Intake Total 3704.417 Output Total 3075 Balance 629.417 RT Ventilator Mngmt (Last Documented) Ventilator Ordered Settings Respiratory Rate 23 01/20/24 05:00 Ventilator - PT Measurements Respiratory Rate 23 End-Tidal CO2 31 Coding Level of Care Code 41163 SUB INP/OBS CARE 2/35MIN Diagnoses Overdose T50.901A Seizure R56.9
--- NOTE | 2024-01-20 09:45 | Hospitalist Progress Note ---
Date of Service January 20, 2024 Assessment & Plan (1) Seizure: Plan: 18yo female with unknown medical/surgical history presenting with witnessed seizure x 2 at library and one additional in ED. No further seizures after benzodiazepines and levetiracetam. Possible toxidrome, however, admits to only taking two OTC benadryl for sleep. -her father reports no history of epilepsy -continue seizure precautions -check TSH -consulted Dr. Weiss neurology -presentation seems out of proportion to taking two benadryl, may need further testing (2) Toxic metabolic encephalopathy: Plan: possible anticholinergic toxicity which fits with clinical presentatin, however states she only took two OTC benadryl (which would be 50 mg total). Initially was confused with apparent visual hallucinations, sleepy, nauseated, tremulous without rigidity, tachycardic, urinary retention, and prolonged QTC at 560. UDS was negative as was APAP, salicylate and there was nothing in the PDMP. Does not take any prescription medications. No infectious signs or symptoms, has not been on antibiotics or AED. All of this appears to be resolved/resolving, however, remains somewhat encephalopathic - sleepy and inattentive with sometimes rapid and difficult to understand sleep Repeat EKG for QTC in am. Also has some nonspecific ST abnormality and borderline heart size on CXR. If EKG remains abnormal would proceed with TTE Urinary retention seems to have resolved, monitor bladder scan Check TSH Psychiatry and neurology consulting Plan History of peanut allergy DVT ppx - start enoxaparin discussed with SENIOR MILITARY ANALYST I updated her father yesterday afternoon by phone Admission and Anticipated Discharge Date Admission Date: January 19, 2024 Sourav Pastrana says she can't remember the last few days but she's aware that she's in the hospital for a seizure No neck, head, chest abdominal pain. No nausea. Endorses that her father did visit yesterday but not so far this am. States she is not hungry. Has not touched bfast tray. Has continued to be sleepy. Speech still sometimes rapid and hard to understand, but clear when she's asked to repeat herself Physical Exam 2 Physical Exam: PHYSICAL EXAMINATION Last 24h vital signs reviewed, see documentation in flowsheet General: sleeping on side in bed HEENT: Normocephalic, atraumatic, pupils round and equal, sclerae anicteric, no conjunctival injection, moist mucus membranes Lungs: Normal respiratory effort. Clear to auscultation bilaterally. No RRW Heart: Regular rate and rhythm, no murmurs. No JVD Abdomen: Soft, NT ND. Bowel sounds present. Extremities: Warm, dry, well-perfused. No extremity edema. Neuro: Awakens and oriented to place and basic situation, however, remains sleepy and inattentive, does not give narrative but answers direct questions, speech is still occasionally rapid and hard to understand but clear when asked to repeat herself, no longer appears to have visual hallucinations, no tremulousness or rigidity. No meningismus has full ROM of neck which is supple Psych: acknowledges a lot of stress from school, insomnia, denies intentional overdose Results & Data Results & Data Vital Signs (Past 12 Hours) Vital Signs Temp Pulse Resp BP Pulse Ox O2 Del Method O2 Del Method 01/20/24 06:12 103/68 01/20/24 05:00 67 23 104/63 98 01/20/24 04:46 36.3 C L 01/20/24 04:32 Room Air 01/20/24 04:03 70 20 104/59 L 96 01/20/24 03:00 65 25 H 104/65 98 01/20/24 02:00 67 16 104/69 96 01/20/24 01:24 64 01/20/24 01:23 36.6 C 01/20/24 01:00 66 16 95/55 L 99 01/20/24 00:06 65 25 H 99 01/19/24 23:14 67 16 93/62 L 98 Room Air 01/19/24 23:03 67 17 98 01/19/24 22:03 70 17 101/71 97 Laboratory Results 01/20/24 04:04 01/20/24 04:04 PG Care Time/CCT Total # of Minutes Spent Total Time Spent with Patient: Total time spent is greater than 50% in coordination of care (as documented) at patient's floor/unit and/or counseling patient: Coding Level of Care Code 03004 SUB INP/OBS CARE 3/50MIN Diagnoses Seizure R56.9 Toxic metabolic encephalopathy G92.8
[2024-01-20 09:52] LABS: Thyroid Stimulating Hormone 3.045 uIu/ml (0.300-4.500)
[2024-01-20] MEDS ORDERED: LORazepam 2 MG/1 ML VIAL IV PRN (10:37)
--- NOTE | 2024-01-20 11:04 | Neurology Consultation ---
Date of Consultation January 20, 2024 Assessment & Plan (1) New onset seizure: Plan Patient has had new onset seizures of uncertain etiology with 3 on January 17 (2 in the [facility] library, and 1 in the ER). She has no history of seizures or medical/surgical issues that would cause seizures. I cannot exclude a concussion from closed head trauma with the seizures. This could explain some confusion/fogginess today, which is 2 days later. Alternatively, the patient can have some postictal confusion for 48 hours after significant seizures as well. There is no illicit substance or toxin history and no metabolic or endocrine allergies. She was not on any medication. There is no family history of seizures. She has been sleep deprived and anxious. She took (as far as we can tell) 2 tablets of diphenhydramine, which should not cause seizures. She has no focal findings, meningeal signs, or overt encephalopathy. Recommendations: 1. MRI of the brain with and without contrast with attention to the temporal lobes 2. Consider EEG routine 3. Check ESR, Lyme antibody titer, and B12 4. Since Keppra can make mood issues worse and can cause some sleepiness, I would not use this medication on this patient long-term. 5. Since she has had 3 seizures we should cover her at least temporarily with anticonvulsant. Initiate lamotrigine 25 mg twice a day (for 1 week) then increase to 50 mg twice a day. This has a management being a mood stabilizer as well. 6. Otherwise follow-up with neurology in 2 to 3 weeks with a televisit, with one of the neurology PA's (get the patient on the [facility] portal so she can do a televisit) Overall, I spent a total of 75 minutes with this case including review of records, review of CT films, direct evaluation the patient at bedside, report generation, and discussion of the case with the patient, RN, and father at bedside, and Dr. Edwards including differential diagnosis and treatment options. History of Present Illness Reason for Consultation: Patient is a 18-year-old who I was asked to see at the request of Dr. Edwards, for neurologic consultation regarding new onset seizures. Requesting Physician: Dr. Edwards Attending Physician: Jess Edwards MD History of Present Illness Patient's father (they live in [place]) is present during this exam. 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 This patient has no history of convulsions or seizures throughout her life. She has no history of significant head trauma, medical problems or illnesses or meningitis/encephalitis. She has no family history of seizures. The patient does not use any illicit substances but remembers on January 17 taking [id number] sleeping pill. She has been stressed and not sleeping well. She thinks she may have taken 2 diphenhydramine pills that she got [id number] from [employer]. Otherwise she cannot remember anything of that day or up until today. She admits being stressed and not sleeping well but denies depression. She denies headache, vision issues, taste or smell problems, nausea, weakness, numbness, or tremor. She has no incontinence of urine. Her balance has been off a little bit the last day or 2 and she has a little bit of "foggy"/confusion today and yesterday. On January 17 when she came to the emergency room, a CT scan of the head was unremarkable. CT scan of the face showed no fractures. She did have bruising on the left cheek. CBC and CHEM profile were largely unremarkable. Urinalysis and tox screen were negative and alcohol was normal/not present). TSH was 3.0 and she was not . The patient tells me that she has no medical issues, no surgical procedures except for wisdom teeth removal, and she was on no medications or supplements. She is not eating well. She is not exposed any toxins or chemicals in her classes. She is not involved in any hobbies with chemicals. Allergies Allergy/AdvReac Type Severity Reaction Status Date / Time peanut Allergy Unknown Verified 01/19/24 14:52 Patient History Family History (Updated 01/20/24 @ 11:11 by Bob Weiss MD) Mother Diabetes Father No problems noted. Social History (Updated 01/20/24 @ 11:12 by Bob Weiss MD) Smoking Status: Never smoker Second Hand Exposure: No; Do You Dip or Chew Tobacco: No; Hx Alcohol Use: No (unable to answer) Hx Substance Use: No Preferred Language: Latvian Communication Ability: Impaired Basket Filler Required: No Beliefs That Will Affect Care: None Current Living Situation: Other Current Living Situation Comment: Lives on campus with a roommate current occupational status: student current occupation: [employer] major Feels Safe at Home: Yes Assistive Devices: None Review of Systems Constitutional: + fatigue; no fever and no weakness Eyes: no diplopia, no eye pain and no worsening vision Ear, Nose, Mouth, Throat: no ear pain, no tinnitus, no hearing loss, no dizziness, no snoring, no hoarseness and no dysphagia Respiratory: no cough and no dyspnea Cardiovascular: no chest pain, no palpitations and no lightheadedness Gastrointestinal: no abdominal pain, no nausea and no vomiting Genitourinary: no dysuria, no urinary frequency and no urinary incontinence Musculoskeletal: no back pain, no neck pain, no radicular pain, no joint pain and no myalgia Integumentary: no rash and no lesions Neurologic: + confusion; no gait abnormality, no loc alized weakness, no generalized weakness, no tingling, no numbness, no tremor(s), no abnormal movements, no headache(s), no abnormal speech and no memory loss Psychiatric: + abnormal sleep pattern and + anxiety; no depression, no irritability, no difficulty concentrating, no confusion and no hallucinations Endocrine: no fatigue and no flushing Hematologic / Lymphatic: no easy bleeding and no easy bruising Allergy / Immunological: no urticaria and no problem reported Exam (Neuro) Physical Exam: The patient is right-handed. The patient is awake, alert, and attentive. Speech is normal without any aphasia or dysarthria. Mentation and thought processes are intact, with full orientation and normal fund of knowledge. Mood and affect are normal and appropriate. Appearance and grooming are normal. Short-term memory is poor for events from starting on the 11th except that she remembers going to [employer] to buy diphenhydramine. Long-term memory is reasonable. Pupils are 4 mm bilaterally and reactive to light. Extraocular eye muscles are intact without nystagmus. Visual acuity and visual campbell seem normal grossly to confrontation. There are no deficits to sensation in the face in all 3 distributions of the fifth cranial nerve bilaterally. Corneal reflexes are positive bilaterally. Facial strength and symmetry was normal bilaterally. Hearing seems intact grossly to voice and finger rub bilaterally. Palate moves well without asymmetry. There is normal sternocleidomastoid and trapezius strength bilaterally. Tongue is midline with good strength bilaterally. Neck has a full range of motion without discomfort. Cervical, thoracic, and lumbar spine are nontender to palpation. Gait was not tested. Stance sitting up is poor (dizzy) With outstretched arms there is no drift. There are no resting, postural, or action tremors. There is no ataxia with finger to nose testing. There is good facility in the hands. No other abnormal involuntary movements are noted. Motor strength is 5/5 diffusely in the arms bilaterally including deltoids, biceps, triceps, brachioradialis, wrist flexors and extensors, enterprise architect manager, and intrinsic hand muscles. Motor strength is 5/5 diffusely in the legs bilaterally including hip flexors, quadriceps, hamstrings, gastrocnemius, tibialis anterior, tibialis posterior, and Peroneii muscles bilaterally. Toe extensors are normal and there is good bulk in the extensor digitorum brevis muscles bilaterally. The limbs have good tone without rigidity or spasticity. There is no atrophy noted in the muscles. Muscle bulk is normal, there is no tenderness to palpation, no myotonia to percussion, and no fasciculations seen. Sensory examination is intact to touch and pin throughout all 4 limbs diffusely. Reflexes are 2/4 in the biceps, triceps, brachioradialis, quadriceps, and Achilles tendons bilaterally. Toes are downgoing with plantar stimulation on the left. They are equivocal on the right. Peripheral pulses are present and of normal quality distally in all 4 limbs. There is no peripheral edema noted in the limbs. Results & Data Vital Signs (Past 12 Hours) Vital Signs Temp Pulse Resp BP Pulse Ox O2 Del Method O2 Del Method 01/20/24 08:00 Room Air 01/20/24 07:30 72 01/20/24 06:12 103/68 01/20/24 05:00 67 23 104/63 98 01/20/24 04:46 36.3 C L 01/20/24 04:32 Room Air 01/20/24 04:03 70 20 104/59 L 96 01/20/24 03:00 65 25 H 104/65 98 01/20/24 02:00 67 16 104/69 96 01/20/24 01:24 64 01/20/24 01:23 36.6 C 01/20/24 01:00 66 16 95/55 L 99 01/20/24 00:06 65 25 H 99 01/19/24 23:14 67 16 93/62 L 98 Room Air PG Care Time/CCT Total # of Minutes Spent Total Time Spent with Patient: Total time spent is greater than 50% in coordination of care (as documented) at patient's floor/unit and/or counseling patient: Coding Level of Care Code 46677 INT INP/OBS CARE 75MIN Diagnoses New onset seizure R56.9 Time Spent (min) 75
[2024-01-20] MEDS: GADOBUTROL 65ML VIAL IV ONE (17:19)
--- NOTE | 2024-01-20 17:46 | Magnetic Resonance Report ---
Clinical History: Seizures Technique: Multiple T1 and T2-weighted magnetic resonance images were obtained of the brain before and after the administration of intravenous gadolinium contrast Findings: There is no sign of acute or old infarction with normal-appearing diffusion weighted images. No definite focus of demyelination is seen. There is no definite sign of crane matter heterotopia, mesial temporal sclerosis, focal atrophy, vascular malformation, or neurocutaneous syndrome. No definite mass lesion or other area of abnormal enhancement is seen. There is no intracranial hemorrhage or other fluid collection. No midline shift or other form of herniation is seen. There is no hydrocephalus. Normal flow-voids are seen within the arteries of the [id number]. The orbits appear unremarkable. There is a mucus retention cyst in the left maxillary sinus. There is mild ethmoid sinus mucosal thickening. The mastoid air cells appear clear. Impression: 1. Normal-appearing brain 2. Chronic sinusitis Electronically signed by Ayush Taveras 01-20-2024 5:45 PM
[2024-01-21 07:09] LABS: Basophils # (auto) 0.05 K/uL (0.00-0.20); Basophils % (auto) 0.6 %; Eosinophils % (auto) 6.9 %; Hematocrit (blood only) 39.7 % (37.0-47.0); Hemoglobin 13.2 g/dl (12.0-16.0); Immature Granulocytes # (auto) 0.01 K/uL (0.01-0.20); Immature Granulocytes % (auto) 0.1 %; Lymphocytes % (auto) 32.4 %; Mean Corpuscular Hgb Conc 33.2 g/dL (32.0-36.0); Mean Corpuscular Volume 90.2 fL (80.0-100.0); Mean Platelet Volume 8.4 fL (9.4-12.4); Monocytes # (auto) 0.78 K/uL (0.11-0.59); Platelet Count 221 K/uL (130-400); RDW Coefficient of Variation 11.8 % (11.5-14.5); RDW Standard Deviation 39.2 fL (36.4-46.3); White Blood Count 8.64 K/ul (4.8-10.8)
[2024-01-21 07:11] VITALS: RESP 17; O2SAT 98
[2024-01-21 07:21] LABS: BUN Creatinine Ratio 12.3 (10-20); Calcium 8.8 mg/dl (8.6-10.3); Creatinine Clr Calc Pharmacy 81.7 ml/min; Magnesium 1.7 mg/dl (1.7-2.4); Potassium 3.9 mmol/L (3.5-5.1)
--- NOTE | 2024-01-21 07:30 | Electroencephalogram ---
EEG Procedure Note Date of Service January 21, 2024 Start / End Times Start Time: 606 End Time: 626 Referring Physician Jess Edwards MD History 18-year-old with new onset seizures January 17 (x 3). Inpatient Medication List Discontinued Medications Dextrose (Dextrose 50% 50 Ml Syringe) Confirm Administered Dose 50 ml IV .STK- MED ONE Stop: 01/19/24 12:00 Last Admin: 01/19/24 12:05 Dose: Not Given Documented By: BRO Dextrose (Dextrose 50% 50 Ml Syringe) 50 ml IV NOW ONE Stop: 01/19/24 12:03 Last Admin: 01/19/24 12:02 Dose: 50 ml Documented By: BRO Dextrose (Dextrose 50% 50 Ml Syringe) Confirm Administered Dose 50 ml IV .STK- MED ONE Stop: 01/19/24 18:02 Last Admin: 01/19/24 18:22 Dose: Not Given Documented By: BRO Dextrose (Dextrose 50% 50 Ml Syringe) 25 ml IV NOW STA Stop: 01/19/24 18:08 Last Admin: 01/19/24 18:21 Dose: 25 ml Documented By: BRO Gadobutrol (Gadobutrol 65ml Vial) 4.5 ml IV ONCE ONE Stop: 01/20/24 17:20 Last Admin: 01/20/24 17:19 Dose: 4.5 ml Documented By: GUERRERO Sodium Chloride (Nss) 500 mls @ 999 mls/hr IV .Q31M ONE Stop: 01/19/24 00:03 Last Infusion: 01/19/24 01:19 Dose: Infused Documented By: Admin: 01/18/24 23:42 Dose: 999 mls/hr Documented By: RANJIT Sodium Chloride (Nss) 500 mls @ 999 mls/hr IV .Q31M ONE Stop: 01/19/24 01:42 Last Infusion: 01/19/24 01:59 Dose: Infused Documented By: Admin: 01/19/24 01:24 Dose: 999 mls/hr Documented By: RIKA Sodium Chloride (Nss) 500 mls @ 125 mls/hr IV .Q4H KARIS Stop: 01/19/24 05:14 Last Infusion: 01/19/24 06:05 Dose: Infused Documented By: Admin: 01/19/24 01:59 Dose: 125 mls/hr Documented By: RIKA Magnesium Sulfate/Dextrose (Magnesium Sulfate / D5w) 1 gm in 100 mls @ 50 mls/hr IV Q2H KARIS Stop: 01/19/24 08:31 Last Infusion: 01/19/24 10:24 Dose: Infused Documented By: Admin: 01/19/24 08:09 Dose: 50 mls/hr Documented By: Infusion: 01/19/24 07:00 Dose: Infused Documented By: Admin: 01/19/24 05:25 Dose: 50 mls/hr Documented By: TMG Lactated Ringer's (Lr) 1,000 mls @ 125 mls/hr IV .Q8H KARIS Stop: 01/19/24 20:31 Last Infusion: 01/19/24 10:22 Dose: Infused Documented By: Admin: 01/19/24 05:25 Dose: 125 mls/hr Documented By: RADHA Potassium Chloride (K Cory / Wtr) 10 meq in 100 mls @ 100 mls/hr IV Q1H KARIS; Protocol Stop: 01/19/24 10:31 Last Infusion: 01/19/24 06:47 Dose: Infused Documented By: Admin: 01/19/24 06:46 Dose: Not Given Documented By: Admin: 01/19/24 05:25 Dose: 100 mls/hr Documented By: TMG Potassium Chloride (K Cory / Wtr) 10 meq in 100 mls @ 100 mls/hr IV ONE ONE; Protocol Stop: 01/19/24 07:27 Last Infusion: 01/19/24 07:32 Dose: Infused Documented By: Admin: 01/19/24 06:32 Dose: 100 mls/hr Documented By: TMG Potassium Acetate (Potassium Acetate/Nss) 10 meq in 105 mls @ 105 mls/hr IV Q1H KARIS Stop: 01/19/24 16:59 Last Infusion: 01/19/24 18:39 Dose: Infused Documented By: Admin: 01/19/24 17:39 Dose: 105 mls/hr Documented By: Infusion: 01/19/24 17:39 Dose: Infused Documented By: Admin: 01/19/24 16:41 Dose: 105 mls/hr Documented By: BRO Dextrose/Lactated Ringer's (D5w And Lactated Ringers) 1,000 mls @ 110 mls/hr IV .Q9H6M KARIS Stop: 01/20/24 17:59 Last Infusion: 01/20/24 20:30 Dose: Infused Documented By: Admin: 01/20/24 12:37 Dose: 110 mls/hr Documented By: Infusion: 01/20/24 12:28 Dose: Infused Documented By: Admin: 01/20/24 03:22 Dose: 110 mls/hr Documented By: Infusion: 01/20/24 03:21 Dose: Infused Documented By: Admin: 01/19/24 18:15 Dose: 110 mls/hr Documented By: BRO Levetiracetam (Levetiracetam 500 Mg/5 Ml Vial) 950 mg 20 mg/kg (950 mg) IV NOW STA Stop: 01/18/24 23:04 Last Admin: 01/18/24 23:14 Dose: 950 mg Documented By: RIKA Lorazepam (Lorazepam 1 Mg/1 Ml Syr Ed Inj Use) Confirm Administered Dose 2 mg .ROUTE .STK-MED ONE Stop: 01/18/24 23:00 Last Admin: 01/18/24 23:15 Dose: Not Given Documented By: RIKA Lorazepam (Lorazepam 2 Mg/1 Ml Vial) 0.5 mg IV NOW STA Stop: 01/18/24 23:04 Last Admin: 01/18/24 23:15 Dose: 0.5 mg Documented By: RIKA Lorazepam (Lorazepam 1 Mg/1 Ml Syr Ed Inj Use) 0.5 mg IV ONE STA Stop: 01/19/24 00:13 Last Admin: 01/19/24 00:18 Dose: 0.5 mg Documented By: RIKA Miscellaneous (Icu Protocol For Hyperglycemia) 1 each N/A ACHS KARIS Stop: 01/21/24 07:29 Last Admin: 01/20/24 07:49 Dose: Not Given Documented By: Admin: 01/19/24 23:15 Dose: Not Given Documented By: Admin: 01/19/24 18:29 Dose: Not Given Documented By: Admin: 01/19/24 12:14 Dose: Not Given Documented By: Admin: 01/19/24 08:27 Dose: Not Given Documented By: KJL Potassium Chloride (Potassium Chloride 20 Meq/15 Ml Udc) 20 meq PO NOW STA Stop: 01/20/24 04:59 Last Admin: 01/20/24 05:10 Dose: 20 meq Documented By: TMG Description This is a 21 electrode EEG with a single channel dedicated to limited EKG. The electrodes were placed in accordance with the International 10-20 system. Interpretation The predominant background activity consists of a very well modulated 11 Hz activity, of up to 30 mV in amplitude,seen symmetrically distributed over the posterior head regions bilaterally. This activity attenuates with eye-opening and other alerting procedures. Photic stimulation was performed and elicited no change in the background activity and no abnormal responses were seen. Hyperventilation was not performed. A mild amount of muscle and movement artifact activity contaminated the recording, yet did not hinder interpretation to any significant degree. Throughout the waking portion of the recording, no focal abnormalities, abnormal slow activity, or potentially epileptogenic discharges were seen. The patient entered the drowsy state and periods of stage II sleep with no further activation. In summary, this EEG was normal during wakefulness and sleep. No focal abnormalities, potentially epileptogenic discharges, or abnormal slow activity were seen. Clinical Correlation The absence of potentially epileptogenic activity does not exclude a seizure disorder, since interictally, EEGs can be normal. Clinical correlation is required. [facility] [place] EEG Procedure Codes Indication for Procedure (1) New onset seizure: Neurology Neurology: 47393 EEG include record awake & sleepy
--- NOTE | 2024-01-21 07:56 | Neurology Progress Note ---
Date of Service January 21, 2024 Assessment & Plan (1) New onset seizure: Plan January 17, patient had new onset seizures (3 total) of uncertain etiology (2 in the [facility] library, and 1 in the ER). She has no history of seizures or medical/surgical issues that would cause seizures. I cannot exclude a concussion from closed head trauma with the seizures. This could explain some confusion/fogginess today, which is 2 days later. Alternatively, the patient can have some postictal confusion for 48 hours after significant seizures as well. There is no illicit substance or toxin history and no metabolic or endocrine problem history. She was/is not on any medication or other supplements that she admits to. There is no family history of seizures. She has been sleep deprived and anxious. She took (as far as we can tell) only 2 tablets of diphenhydramine, which should not cause seizures. She has no focal findings, meningeal signs, or overt encephalopathy. MRI of the brain and EEG were unremarkable/normal Therefore, the etiology of the seizures is likely multifactorial including sleep deprivation, relatively poor nutrition, significant stress/anxiety, and addition of some diphenhydramine. Also, if she had a concussion after the first seizure, this could lead to increased symptoms and even subsequent secondary seizures. Recommendations: 1. Increase activity as able 2. Since Keppra can make mood issues worse and can cause some sleepiness, I would not use this medication on this patient long-term. However, I do believe the patient does need an anticonvulsant based on her history and the fact that she had 3 seizures. 3. Initiate lamotrigine 25 mg twice a day (for 1 week) then increase to 50 mg twice a day. This has an advantage of being a mood stabilizer as well. 4. Otherwise follow-up with neurology in 2 to 3 weeks with a televisit, with one of the neurology PA's (get the patient on the [email or web address] portal so she can do a televisit) Overall, I spent a total of 50 minutes with this case including review of records, review of MRI films, direct evaluation the patient at bedside, report generation, and discussion of the case with the patient, RN, and father at bedside, and Dr. Edwards including differential diagnosis and treatment options. Admission and Anticipated Discharge Date Admission Date: January 19, 2024 Subjective Patient tells me that she feels much better today. She has no pain but does have a achy bifrontal headache. Her arms are sore but her legs feel normal. She has no vision issues, dizziness, or ringing in her ears. Cognitively she feels sharper today. Once again, today, she reiterated that she only took 1 type of pill (diphenhydramine) and only took 2 pills. She is insistent that she did not take more than 2 pills and that she did not take any other medication. MRI of the brain with and without contrast was unremarkable/normal. There were no temporal lobe abnormalities and no abnormalities after contrast. EEG was normal awake and asleep CBC, CHEM profile, B12, Lyme antibody titers, ESR, and TSH were all normal. Blood pressure is 100/62 with a pulse of 58. She is afebrile. Results & Data Vital Signs (Past 12 Hours) Vital Signs Temp Pulse Pulse Resp BP BP Pulse Ox 01/21/24 07:09 36.4 C L 58 L 17 100/62 98 01/21/24 03:12 36.6 C 81 12 95/58 L 99 01/21/24 00:00 64 01/20/24 23:25 36.9 C 74 12 99/65 L 98 O2 Del Method 01/21/24 07:09 Room Air 01/21/24 03:12 Room Air 01/21/24 00:00 01/20/24 23:25 Room Air Exam (Neuro) Physical Exam: She is awake and alert. Speech is without aphasia or dysarthria. Mood and affect are normal and appropriate. Thought processes are intact to con versation. She remembered me from yesterday. Extraocular muscles are intact without nystagmus. There is no facial droop. Tongue is midline. Stance sitting up in bed is normal. There are no abnormal involuntary movements. Strength seems symmetrical. PG Care Time/CCT Total # of Minutes Spent Total Time Spent with Patient: Total time spent is greater than 50% in coordination of care (as documented) at patient's floor/unit and/or counseling patient: Coding Level of Care Code 47323 SUB INP/OBS CARE 3/50MIN Diagnoses New onset seizure R56.9 Time Spent (min) 50
--- NOTE | 2024-01-21 08:42 | Electrocardiogram Report ---
Test Reason : Blood Pressure : */* mmHG Vent. Rate : 97 BPM Atrial Rate : 97 BPM P-R Int : 178 ms QRS Dur : 82 ms QT Int : 394 ms P-R-T Axes : 83 92 80 degrees QTcB Int : 500 ms Normal sinus rhythm Right atrial enlargement Rightward axis Pulmonary disease pattern Prolonged QT Abnormal ECG When compared with ECG of 18-Jan-2024 22:54, HR has decreased by 36 bpm AR interval has increased Confirmed by Lazaro Lane ([id number]) on 01/21/2024 8:42:25 AM Referred By: REFERRED SELF Confirmed By: Laazro Lane
--- NOTE | 2024-01-21 08:53 | Electrocardiogram Report ---
Test Reason : Blood Pressure : */* mmHG Vent. Rate : 73 BPM Atrial Rate : 73 BPM P-R Int : 156 ms QRS Dur : 86 ms QT Int : 428 ms P-R-T Axes : 64 70 50 degrees QTcB Int : 471 ms Sinus rhythm Normal ECG When compared with ECG of 19-Jan-2024 18:18, No significant change was found Confirmed by Lazaro Lane ([id number]) on 01/21/2024 8:53:11 AM Referred By: REFERRED SELF Confirmed By: Lazaro Lane
--- NOTE | 2024-01-21 08:54 | Electrocardiogram Report ---
Test Reason : Blood Pressure : */* mmHG Vent. Rate : 98 BPM Atrial Rate : 98 BPM P-R Int : 152 ms QRS Dur : 80 ms QT Int : 400 ms P-R-T Axes : 68 85 44 degrees QTcB Int : 510 ms Normal sinus rhythm Prolonged QT Abnormal ECG When compared with ECG of 19-Jan-2024 06:20, No significant change Confirmed by Lazaro Lane ([id number]) on 01/21/2024 8:54:07 AM Referred By: REFERRED SELF Confirmed By: Lazaro Lane
[2024-01-21] MEDS: lamoTRIgine 25 MG TAB PO SCH (08:57)
--- NOTE | 2024-01-21 08:57 | Electrocardiogram Report ---
Test Reason : Blood Pressure : */* mmHG Vent. Rate : 68 BPM Atrial Rate : 68 BPM P-R Int : 156 ms QRS Dur : 96 ms QT Int : 440 ms P-R-T Axes : 72 78 67 degrees QTcB Int : 467 ms Normal sinus rhythm T wave abnormality, consider anterior ischemia Abnormal ECG When compared with ECG of 19-Jan-2024 22:37, T-wave inversion in Anteroseptal leads now present Confirmed by Lazaro Lane ([id number]) on 01/21/2024 8:56:35 AM Referred By: REFERRED SELF Confirmed By: Lazaro Lane
--- NOTE | 2024-01-21 11:16 | Psychiatric Progress Note ---
Date of Service January 21, 2024 Impression / Recommendations Impression This is a 18 yo woman and [employer] student admitted medically following an intentional overdose suicide attempt with subsequent seizures. Diagnostically consistent with MDD in the context of recent stressors including academic pressure, feeling that she may have done poorly on an exam. Acute risk of self- harm remains elevated and high given suicide attempt requiring medical admission, major depressive symptoms, impulsivity, limited insight, initial lack of help seeking behaviors. Given elevated risk of harm to self they meet criteria for inpatient psychiatric care for diagnostic clarification, safety/stabilization, development of additional coping skills, medication management and disposition/safety planning once medically stable. If they do not agree to voluntary treatment at that time they will meet criteria for 302 status based on severity of suicide attempt and ongoing modifiable risk factors. She is medically stable today, will need COVID test and then plan to begin bed search for voluntary inpatient psychiatric treatment (she has preference for [facility] if insurance is in network). Overall, I spent a total of 65 minutes with this case including review of chart records, review of labwork, direct evaluation of the patient at bedside, counseling the patient, discussion of the patient with the Nurse and with the hospitalist provider, discussion with the psychiatric liason during clinical rounds, review of collateral historian information from the family and documentation in the electronic health record. (1) Suicide attempt by drug ingestion: (2) Anxiety: (3) Depression: (4) Toxic metabolic encephalopathy: (5) Seizure: Plan -Continue 1-on-1 and safety precautions -Do not discharge or allow to leave AMA, would meet 302 criteria -COVID test -Once medically cleared plan for psychiatric hospitalization Interval History Identifying Information 18 yo woman and [employer] student admitted medically following seizure of unknown cause but with concern for possible ingestion. Psychiatry consulted for risk assessment/recommendations. Chief Complaint "I tried committing suicide". Subjective Subjective Patient was seen & assessed and interval progress reviewed. Reports that she studied a lot for an exam for a difficult class and then felt very "demoralized" after she took the exam on 01/18/2024 and "thought I hadn't done well". She then went to [employer] and decided to buy a bottle of "diphenhydramine" which she believed as "sleeping pills so would knock me out". Confirms that she took the medication as a means of "committing suicide" and that while she did not research potential lethality assumed it would work to kill her since it was a sedating medication. She recalls feeling "really upset" about the exam and then thinks she took the pills in her dorm and then somehow ended up at the library thought she doesn't recall going to the library or the events that occurred there until arriving at the hospital. Reports she took the whole bottle. Asked how she feels about being alive reports she "regrets" the attempt because "being the hospital, this all feels like it was a whole waste of time". She hasn't yet told her parents about the attempt because she worries they will "blame themselves". She feels her parents are supportive and gives me permission to discuss her attempt with her father. Discussed treatment recommendation of inpatient psychiatric treatment and she is in agreement with this. She denies any prior suicide attempts. No prior psychiatric or mental health treatment, diagnoses nor medications. Denies substance use. We had her father come back into the room and discussed with him, with Zeina also present, what she had shared with me and plan for inpatient psychiatric treatment. He is supportive of this. He adds collateral that she hadn't been sleeping well recently due to roommate being disruptive and that Zeina had spoken to him about how stressed and overwhelmed she was about her exam and difficult course. Physical Exam Psychiatric Orientation: alert and oriented x 3 Apperance: appropriately dressed and appropriately groomed Eye Contact: good eye contact Motor Behavior: no abnormal motor movements Speech: + abnormal rate/rhythm/volume of speech (soft) Affect: + depressed affect and + flat affect Mood: + depressed mood and + anxious mood Thought Process: goal directed thought process and + concrete thought process Thought Content: reality based without delusions Suicidal Thoughts: denies suicidal thoughts (none currently but s/p serious attempt ) Homicidal Thoughts: denies homicidal thoughts Hallucinations: no auditory hallucinations and no visual hallucinations Cognition: attention grossly intact and language grossly intact Estimated Intelligence: consistent with education level Insight: + limited insight Judgment: + limited judgement Vital Signs (Past 24 Hours) Last Vital Signs Temp 36.4 C L 01/21/24 07:09 Pulse 50 L 01/21/24 08:32 Resp 17 01/21/24 07:09 BP 100/62 01/21/24 07:09 Pulse Ox 98 01/21/24 07:09 O2 Del Method Room Air 01/21/24 07:09 Results & Data ([facility]) Laboratory Results Laboratory Results - last 24 hr 01/20/24 01/20/24 01/20/24 04:04 11:07 13:26 WBC RBC Hgb Hct MCV MCH MCHC RDW Std Deviation RDW Coeff of Rommel Plt Count MPV Immature Gran % (Auto) Neut % (Auto) Lymph % (Auto) Sac % (Auto) Eos % (Auto) Baso % (Auto) Neut # (Auto) Lymph # (Auto) Sac # (Auto) Eos # (Auto) Baso # (Auto) Immature Gran # (Auto) ESR < 1 Sodium Potassium Chloride Carbon Dioxide Anion Gap BUN Creatinine Est Cr Clr Drug Dosing eGFR BUN/Creatinine Ratio Glucose POC Glucose 71 Calcium Magnesium Vitamin B12 370 Lyme Disease Screen 01/20/24 01/20/24 01/21/24 14:09 21:24 06:33 WBC 8.64 RBC 4.40 Hgb 13.2 Hct 39.7 MCV 90.2 MCH 30.0 MCHC 33.2 RDW Std Deviation 39.2 RDW Coeff of Rommel 11.8 Plt Count 221 MPV 8.4 L Immature Gran % (Auto) 0.1 Neut % (Auto) 51.0 Lymph % (Auto) 32.4 Sac % (Auto) 9.0 Eos % (Auto) 6.9 Baso % (Auto) 0.6 Neut # (Auto) 4.40 Lymph # (Auto) 2.80 Sac # (Auto) 0.78 H Eos # (Auto) 0.60 H Baso # (Auto) 0.05 Immature Gran # (Auto) 0.01 ESR Sodium 139 Potassium 3.9 Chloride 106 Carbon Dioxide 27 Anion Gap 6 BUN 10 Creatinine 0.81 Est Cr Clr Drug Dosing 81.7 eGFR 106.51 BUN/Creatinine Ratio 12.3 Glucose 77 POC Glucose 73 Calcium 8.8 Magnesium 1.7 Vitamin B12 Lyme Disease Screen Negative 01/21/24 07:11 WBC RBC Hgb Hct MCV MCH MCHC RDW Std Deviation RDW Coeff of Rommel Plt Count MPV Immature Gran % (Auto) Neut % (Auto) Lymph % (Auto) Sac % (Auto) Eos % (Auto) Baso % (Auto) Neut # (Auto) Lymph # (Auto) Sac # (Auto) Eos # (Auto) Baso # (Auto) Immature Gran # (Auto) ESR Sodium Potassium Chloride Carbon Dioxide Anion Gap BUN Creatinine Est Cr Clr Drug Dosing eGFR BUN/Creatinine Ratio Glucose POC Glucose 71 Calcium Magnesium Vitamin B12 Lyme Disease Screen Current Inpatient Medications Current Inpatient Medications: Current Inpatient Medications Acetaminophen (Acetaminophen 325 Mg Tab) 650 mg PO Q4H PRN PRN Reason: Pain or Fever Stop: 02/18/24 04:31 Lamotrigine (Lamotrigine 25 Mg Tab) 25 mg PO BID KARIS; Protocol Stop: 02/20/24 08:59 Last Admin: 01/21/24 08:57 Dose: 25 mg Lorazepam (Lorazepam 2 Mg/1 Ml Vial) 1 mg IV ONE PRN PRN Reason: seizure Stop: 02/19/24 10:36
[2024-01-21 11:32] VITALS: PULSE 64; TEMP 97.9
--- NOTE | 2024-01-21 13:10 | Electrocardiogram Report ---
Test Reason : Blood Pressure : */* mmHG Vent. Rate : 69 BPM Atrial Rate : 69 BPM P-R Int : 144 ms QRS Dur : 92 ms QT Int : 410 ms P-R-T Axes : 63 85 59 degrees QTcB Int : 439 ms Normal sinus rhythm ST elevation, most consistent with repolarization variant Normal ECG When compared with ECG of 20-Jan-2024 02:27, No significant change was found Confirmed by Lazaro Lane ([id number]) on 01/21/2024 1:09:42 PM Referred By: REFERRED SELF Confirmed By: Lazaro Lane
[2024-01-21 13:59] VITALS: BP 95/58
--- NOTE | 2024-01-21 14:07 | Discharge Summary ---
Discharge Summary Date of Service January 21, 2024 Principal Dx & Hospital Course #1 = Principal Diagnosis (1) Seizure: 18yo female [employer] student with no significant medical/surgical history presenting with witnessed seizure x 2 at [facility] and one additional in ED. No further seizures after benzodiazepines and levetiracetam. Admitted to ICU. Clinical presentation consistent with anticholinergic syndrome, however admitted to only taking two OTC sleeping pills for insomnia (diphenhydramine). Had acute toxic metabolic encephalopathy, nausea, tachycardia, prolonged QT, acute urinary retention. She had some fasting hypoglycemia on HD 2 but blood glucose did not go below 50. All of this completely resolved. Neurologist consulted and brain MRI and EEG were obtained which were normal. TSH normal, B12 normal, ESR 1. Psychiatrist consulted. Eventually she admitted intentional overdose / suicide attempt and that she had taken a whole bottle of diphenhydramine. -discussed with neurologist - initially lamotrigine was recommended as AED, however, AED not necessary since seizures were provoked by diphenhydramine overdose -if there are any lingering effects like headache, dizziness or cognitive dysfunction she could have had concussion, however, reports no symptoms at this time -EKG on 01/20 is normal with normalization of the QTC -discussed with Dr. Weiss, Dr. Aparicio and her father at bedside today Admitted to inpatient psychiatry unit for evaluation of depression, anxiety, insomnia. (2) Toxic metabolic encephalopathy: Resolved as above Plan Note she has history of peanut allergy Insulin, proinsulin, C-peptide levels were sent and are pending, however, they are extremely likely to be abnormal. Hypoglycemia resolved once she started eating. BG in 50s can be normal with prolonged fasting. Admission HPI Per Admitting Provider Zeina Wolf is a 18yo female with unknown medical or surgical history presenting after a witnessed seizure. History obtained through discussion with ER staff as patient is unable to answer questions at this time due to somnolence/?post-ictal ?medication effects. Patient was at the [facility] earlier tonight when she became ill and vomited. She then was having a difficult time walking and was limping. She was assisted by a bystander and was lowered to the ground then had a seizure (details unavailable). EMS was contacted and patient was brought to [facility] - she reportedly received 4 doses of IV Zofran by EMS. Upon arrival to the ER patient non-verbal. She had horizontal nystagmus appreciated on intake exam. Tachycardic and tachypneic. While in the ER patient had a second seizure - tonic-clonic, described as going rigid and stiff. Seizure lasted appx 45 seconds. She was given Keppra 950mg + Ativan 0.5mg with improvement. After receiving these medications patient remained rigid and upright so was given an additional dose of Ativan 0.5mg. ER staff reports that she was able to answer some "yes" or "no" questions and possibly admitted to a Benadryl overdose During my encounter patient somnolent. Withdrawing from noxious stimuli. ER Course: Ativan 0.5mg IV x 2 Keppra 950mg IV NSS 500mg IV x 2 now at 125mL/hr Discharge Exam PHYSICAL EXAMINATION Last 24h vital signs reviewed, see documentation in flowsheet General: awake alert sitting up in bed HEENT: mild abrasion right cheek, pupils round and equal, sclerae anicteric, no conjunctival injection, moist mucus membranes Lungs: Normal respiratory effort. Clear to auscultation bilaterally. No RRW Heart: Regular rate and rhythm, no murmurs. No JVD Abdomen: Soft, ND. Bowel sounds present. Extremities: Warm, dry, well-perfused. No extremity edema. Neuro: AOx4 face symmetric, normal but rapid speech, maewx4 no tremor Psych: withdrawn but makes eye contact, normal behavior, continues to have rapid speech however her father speaks the same way Discharge Plan Discharge Items Patient Disposition: Transfer Behavioral Health Fac Reason For Visit: POSSIBLE OVERDOSE Discharge Diagnosis: seizures and anticholinergic toxicity related to intentional diphenhydramine overdose Activity: Resume your previous activity Non-emergency contact: Primary Care Provider and Psychiatrist Call non-emergency contact if: you have any medication questions and your symptoms worsen Follow-up/Referrals: Ann Elena MD [Primary Care Provider] - Diet: Regular Addtl Attending Provider Instructions: . Pending Studies at Discharge: Yes (insulin and C-peptide levels) Stand-Alone Forms: [facility] Skilled Items Lines: None Urinary Catheter: No Medications and DC Order Discharge Orders: Discharge Order (Routine); Ordered 01/21/24 Ordered By: Jess Edwards Admission Data Admit Date/Time: 01/19/24 02:34 Attending Provider: Jerry,Jess E Admit Provider: Luli Granados Primary Care Provider: Ann Elena Other Providers: Luli Granados; Shruti Aparicio; Camilo Roger; Kalyn Arteaga; Myrna Blake; Jean Marie; Mary Martin; Rodney Muñiz; Bob Weiss Hospital Stay Data Consultations 01/19/24 01:21 ED Decision to Admit Stat 01/19/24 02:47 Consult Psychiatry Routine 01/19/24 04:32 Consult Front End Driver Routine 01/20/24 09:05 Consult Neurology Routine Diagnostic Imagining Performed 01/18/24 23:03 CT head/brain wo con Stat 01/18/24 23:07 CT face [CT facial bones wo con] Stat 01/20/24 13:24 MR brain seizure wo/w con Urgent Pending Results Patient Have Any Pending Studies at Discharge: Yes (insulin and C-peptide levels) Discharge Instructions Given to Patient (Per Discharging Provider) . Total Time Total Time Spent Total Time Spent (In Minutes): I personally spent: 45 minutes today on clinical care activities including: reviewing chart notes and vital signs reviewing labs reviewing studies discussion with art sales consultant(s) examining and counseling the patient counseling the patient's family writing orders documentation Coding Level of Care Code 46268 INP/OBS DISCH >30 MIN Diagnoses Seizure R56.9 Toxic metabolic encephalopathy G92.8
--- NOTE | 2024-01-21 15:21 | Electrocardiogram Report ---
Test Reason : Blood Pressure : */* mmHG Vent. Rate : 133 BPM Atrial Rate : 133 BPM P-R Int : 104 ms QRS Dur : 84 ms QT Int : 382 ms P-R-T Axes : * 91 34 degrees QTcB Int : 568 ms Sinus tachycardia Rightward axis Nonspecific ST abnormality Anterior leads Abnormal ECG No previous ECGs available Confirmed by Lazaro Lane ([id number]) on 01/21/2024 3:20:54 PM Referred By: REFERRED SELF Confirmed By: Lazaro Lane
== END 2024-01-21 14:33 | DRG 917 ==
LOC: ED 22:45 → SUATTDRO 01-19 02:34 → 1E 01-19 02:34 → 2S 01-20 17:41

== ENCOUNTER 2024-01-21 14:25 | Inpatient (IN) ==
[2024-01-21] MEDS ORDERED: ALUMINUM/MAGNESIUM SUSP 30 ML UDC PO PRN (14:57)
[2024-01-21] MEDS ORDERED: SODIUM CHLORIDE 0.65% NA SOLN 45 ML (OCEAN) PRN (14:57)
[2024-01-21] MEDS ORDERED: BISMUTH SUBSALICYLATE 262 MG CHEW PO PRN (14:57)
[2024-01-21] MEDS ORDERED: ACETAMINOPHEN 325 MG TAB PO PRN (14:57)
[2024-01-21] MEDS ORDERED: MAGNESIUM HYDROXIDE SUSP 30 ML UDC PO PRN (14:57)
[2024-01-21] MEDS ORDERED: hydrOXYzine HCl 25 MG TAB PO PRN ×2 (14:57)
[2024-01-21 15:29] VITALS: RESP 16; O2SAT 99
--- NOTE | 2024-01-22 08:50 | History & Physical ---
Date of Service January 22, 2024 Impression / Recommendations Impression ZEINA GARCIA is a 18-year-old woman and [employer] student who currently lives on campus, has no formal psychiatric history, and was admitted on 01/21/24 14:42 on a 201 voluntary commitment for suicide attempt via diphenhydramine overdose with subsequent seizure and required medical admission for stabilization. Diagnostically consistent with unspecified depression with differential including acute stress response vs MDD with currently minimizing or limited insight into potential recent symptoms vs RANDY with panic attack vs adjustment disorder with depression and anxiety. At this point seems suicide attempt was d riven by acute panic response from despair of feeling like she failed her exam. Suspect likely RANDY and possible OCPD. Discussed medication treatment options in detail. She is not interested in start ing any medications at this time. She is motivated for therapy and learning improved coping skills to help manage academic stress and anxiety. Overall I spent a total of 75 minutes for this admission including review of chart records, review of labwork, direct evaluation of the patient, counseling the patient, ordering medication, risk assessment, discussion with the psychiatric liason RN and documentation in the electronic health record. (1) Suicide attempt by drug ingestion: (2) Anxiety: (3) Generalized anxiety disorder with panic attacks: (4) Depression: Plan 01/22/2024:The patient was admitted to the [facility] ([facility] inpatient mental health unit) on q15 min checks (behavioral with suicide precautions) for safety. The patient will participate in group, recreational, and milieu therapies and will be offered additional individual and family sessions as clinically appropriate. -Focus on improving coping skills, increasing insight and helping her become more aware of her emotions/thoughts/behaviors. -working on establishing outpatient therapist Inventory Assets Strengths: supportive relationships, willing to get treatment Needs: safety and stabilization, medication adjustment, additional coping skills, increased outpatient services Suicide Risk Level Suicide Risk Level: High-Moderate (q15 min suicide checks) (s/p serious impulsive suicide attempt but encouragingly is now feeling glad to be alive, denies current SI and feels safe and able to ask for support) Risk Factors Assessment Male: No : No Do You Have Access To A Gun?: No Health Problems: No Mental Health Diagnoses: Yes Substance Use Disorders: No Previous Attempt: Yes Family History of Suicide: No Previous Psychiatric Hospitalization: No Hopelessness: No Protective Factors Assessment Employed: No (but student) Stable Relationships: Yes Supportive Family: Yes Psychiatric History Identifying Data ZEINA GARCIA is a 18-year-old woman and [employer] student who currently lives on campus, has no formal psychiatric history, and was admitted on 01/21/24 14:42 on a 201 voluntary commitment for suicide attempt via diphenhydramine overdose with subsequent seizure and required medical admission for stabilization. Chief Complaint "The reason why I ended up hurting myself was being concerned about my grades". History of Present Illness She presents for psychiatric admission for suicide attempt via diphenhydramine overdose in the context of psychosocial stressors including academic stress and fear of failing a perquisite class. Reports feeling demoralized due to not achieving expected academic results despite significant effort. She feels it was a [id number]-moment decision, and she did not feel particularly depressed or anxious beforehand. She describes feeling better today and acknowledges feeling happy to have survived the incident but also feels guilty for causing worry to her parents and roommate. She is tearful and reflects on getting emotional when discussing the incident, stating it was due to putting in a lot of effort without seeing the desired results. She reflects that typically it wouldn't have been her "first instinct to go to that extreme" but felt that she couldn't have done any more to study and thinks this is why she felt so hopeless. Continues to emphasize that it was an impulsive attempt. Denies feeling depressed prior to sudden intense emotional distress of feeling like she did poorly on the exam. Still hasn't gotten her grade back from the exam to confirm if her suspicion of doing poorly is accurate. She denies significant mood symptoms prior to the attempt feels it was "a spur of the moment thing". She's interested in finding better ways to cope with stress. She endorses anxiety symptoms including excessive worry, restlessness, puts a lot of pressure on herself. Denies history of panic attacks but unclear if heightened emotions and distress following exam may have been consistent with a panic attack. Reports she wasn't sleeping well the few nights before her exam because that is usually when she catches up with her roommate and sometimes they are up late talking. On average she thinks she gets 6-7 hours of sleep per night. She is not currently prescribed any psychiatric medications. Psychiatric ROS notable for no current nor history of symptoms of patricia, psychosis, PTSD, OCD nor eating disorder nor self-harm. Further recent history per my consult note on 01/21/2024: "Reports that she studied a lot for an exam for a difficult class and then felt very "demoralized" after she took the exam on 01/18/2024 and "thought I hadn't done well". She then went to [facility] and decided to buy a bottle of "diphenhydramine" which she believed as "sleeping pills so would knock me out". Confirms that she took the medication as a means of "committing suicide" and that while she did not research potential lethality assumed it would work to kill her since it was a sedating medication. She recalls feeling "really upset" about the exam and then thinks she took the pills in her dorm and then somehow ended up at the library thought she doesn't recall going to the library or the events that occurred there until arriving at the hospital. Reports she took the whole bottle. Asked how she feels about being alive reports she "regrets" the attempt because "being the hospital, this all feels like it was a whole waste of time". She hasn't yet told her parents about the attempt because she worries they will "blame themselves". She feels her parents are supportive and gives me permission to discuss her attempt with her father. Discussed treatment recommendation of inpatient psychiatric treatment and she is in agreement with this. She denies any prior suicide attempts. No prior psychiatric or mental health treatment, diagnoses nor medications. Denies substance use. We had her father come back into the room and discussed with him, with Zeina also present, what she had shared with me and plan for inpatient psychiatric treatment. He is supportive of this. He adds collateral that she hadn't been sleeping well recently due to roommate being disruptive and that Zeina had spoken to him about how stressed and overwhelmed she was about her exam and difficult course. " Past Psychiatric History Current Psychiatric Diagnosis: unspecified depression Outpatient Services: none Previous Psych Admissions: none Do You Have Access To A Gun?: No History of Previous Suicide Attempt: Yes (leading to current admission) Past Medication Trials: none Past Head Trauma/Neuro History History of Concussion/Seizure: Yes seizure following overdose Allergies Allergy/AdvReac Type Severity Reaction Status Date / Time peanut Allergy Unknown Verified 01/19/24 14:52 Family History Family History of: None Alcohol History Hx of Alcohol Use Over the Past 12 Months: No Smoking Use Have You Smoked or Used Tobacco Products in the Last 30 Days: No Smoking Status: Never smoker Substance History Hx of Prescription Med Misuse Over the Past 12 Months: No Hx of Over the Counter Med Misuse Over the Past 12 Months: No Hx of Inhalent Misuse Over the Past 12 Months: No Hx of Organic Substance Use Over the Past 12 Months: No Hx of Illegal Substances/Street Drug Use Over Past 12 Months: No Problems as a Result of Past Substance Use: None Identified Personal History Childhood: parents and sister live in [place] Highest Grade Completed: Some College ([employer]) Employment Status: Student Marital Status: Single Number Of Children: none Beliefs That Will Affect Care: None Current Legal Problems: No Hx Legal Problems: No Hx Traumatic Life Events: No Patient History Family History Mother Diabetes Father No problems noted. Social History Smoking Status: Never smoker Second Hand Exposure: No; Do You Dip or Chew Tobacco: No; Hx Alcohol Use: No (unable to answer) Hx Substance Use: No Preferred Language: Swazi Communication Ability: Effective Physical Science Aide Required: No Beliefs That Will Affect Care: None Current Living Situation: Other Current Living Situation Comment: Lives on campus with a roommate current occupational status: student current occupation: [employer] major Feels Safe at Home: Yes Assistive Devices: None Review of Systems Review of Systems: All systems reviewed & are unremarkable except as noted in HPI & below Physical Exam Psychiatric: Orientation: alert, oriented x 3 and + guarded Apperance: appropriately dressed and appropriately groomed Eye Contact: + fair eye contact Motor Behavior: no abnormal motor movements Speech: normal rate/rhythm/volume of speech Affect: + depressed affect, + anxious affect and + tearful affect Mood: + depressed mood and + anxious mood Thought Process: goal directed thought process and + concrete thought process Thought Content: reality based without delusions Suicidal Thoughts: denies suicidal t houghts (but s/p serious attempt), denies suicidal plan and denies suicidal intent Homicidal Thoughts: denies homicidal thoughts Hallucinations: no auditory hallucinations and no visual hallucinations Cognition: recent memory grossly intact, remote memory grossly intact, attention grossly intact and language grossly intact Estimated Intelligence: consistent with education level Insight: + limited insight Judgment: + limited judgement Vital Signs (Past 24 Hours): Last Vital Signs Temp 36.5 C 01/22/24 06:00 Pulse 82 01/22/24 06:25 Resp 16 01/22/24 06:00 BP 94/66 L 01/22/24 06:25 Pulse Ox 99 01/21/24 15:04 O2 Del Method Room Air 01/21/24 15:04 Exam Statement: A physical exam was performed on the medical floor by Dr. Edwards for the purposes of medical clearance. I accept that physical as correct and adequate for the pur poses of the inpatient physical exam. Results & Data ([facility]) Current Inpatient Medications Current Inpatient Medications: Current Inpatient Medications Acetaminophen (Acetaminophen 325 Mg Tab) 650 mg PO Q4H PRN PRN Reason: Headache or Minor Fever Stop: 02/20/24 14:56 Al Hydrox/Mg Hydrox/Simethicone (Aluminum/Magnesium Susp 30 Ml Udc) 30 ml PO Q4H PRN PRN Reason: GI Upset Stop: 02/20/24 14:56 Bismuth Subsalicylate (Bismuth Subsalicylate 262 Mg Chew) 2 tab PO Q30M PRN PRN Reason: Loose Stool/Diarrhea Stop: 02/20/24 14:56 Hydroxyzine HCl (Hydroxyzine Hcl 25 Mg Tab) 50 mg PO HSZ PRN PRN Reason: Insomnia Stop: 02/20/24 14:56 Hydroxyzine HCl (Hydroxyzine Hcl 25 Mg Tab) 25 mg PO Q4H PRN PRN Reason: Anxiety Stop: 02/20/24 14:56 Magnesium Hydroxide (Magnesium Hydroxide Susp 30 Ml Udc) 30 ml PO DAILY PRN PRN Reason: Constipation Stop: 02/20/24 14:56 Sodium Chloride (Sodium Chloride 0.65% Na Soln 45 Ml ([place])) 1 - 2 sprays NA PRN PRN PRN Reason: Nasal Dryness/Congestion Stop: 02/20/24 14:56
[2024-01-22] MEDS ORDERED: hydrOXYzine HCl 25 MG TAB PO PRN (11:42)
[2024-01-22] MEDS ORDERED: hydrOXYzine HCl 10 MG TAB PO PRN (11:42)
--- NOTE | 2024-01-23 15:00 | Psychiatric Progress Note ---
Date of Service January 23, 2024 Impression / Recommendations Impression ARY GARCIA is a 18-year-old woman and [employer] student who currently lives on campus, has no formal psychiatric history, and was admitted on 01/21/24 14:42 on a 201 voluntary commitment for suicide attempt via diphenhydramine overdose with subsequent seizure and required medical admission for stabilization. A:Patient presents a suicide attempt in the context of distressing anxiety from potentially failed exam. Her overdose was gradual and she presented intermittent future orientation; concerned there was subconscious urge to alleviate distressing emotions. She is guarded on interview and often rationalizes her behaviors. Concern for cluster B symptomatology and will clarify with validated questionnaire. Per interview does not meet criteria for MDD or generalized anxiety disorder. Patient was counseled on cognitive behavioral therapy and mindfulness. Currently not interested in medications at this time. Overall, I spent a total of 50 minutes with this case including review of chart records, nursing report, review of lab work, direct evaluation of the patient at bedside, counseling the patient, multidisciplinary team meeting, orders, and documentation in the electronic health record. (1) Suicide attempt by drug ingestion: (2) Anxiety: (3) Depression: (4) Cluster B personality disorder: Plan 01/23/2024: Borderline personality questionnaire 01/22/2024:The patient was admitted to the [facility] ([facility]) on q15 min checks (behavioral with suicide precautions) for safety. The patient will participate in group, recreational, and milieu therapies and will be offered additional individual and family sessions as clinically appropriate. -Focus on improving coping skills, increasing insight and helping her become more aware of her emotions/thoughts/behaviors. -working on establishing outpatient therapist Inventory Assets Strengths: supportive relationships, willing to get treatment Needs: safety and stabilization, medication adjustment, additional coping skills, increased outpatient services Suicide Risk Level Suicide Risk Level: High-Moderate (q15 min suicide checks) (s/p serious impulsive suicide attempt but encouragingly is now feeling glad to be alive, denies current SI and feels safe and able to ask for support) Risk Factors Assessment Male: No : No Do You Have Access To A Gun?: No Health Problems: No Mental Health Diagnoses: Yes Substance Use Disorders: No Previous Attempt: Yes Family History of Suicide: No Previous Psychiatric Hospitalization: No Hopelessness: No Protective Factors Assessment Employed: No (but student) Stable Relationships: Yes Supportive Family: Yes Interval History Chief Complaint "Demoralized" Review of Systems Sleep Information Total Hours of Sleep: 7 Meal Information Percent Meal Consumed - Breakfast: 100 Percent Meal Consumed - Lunch: 100 Percent Meal Consumed - Dinner: 100 Subjective Subjective Patient was seen & assessed and interval progress reviewed with treatment team nursing and social work Initially during interview patient is restless and eager to set an appropriate stage for the interview. Becomes tearful and apologetic for emotions later in the interview. Patient reports recently taking midterm exams which required a passing score for her to pass her class. She went to tutoring and review sessions regularly however the test experience did not go as expected. She did not get the results however felt that she may have failed. She was quite anxious. She went to [employer] in [place] to get groceries such as nail italian and sleeping pills (Benadryl 25 mg bottle of 50 pills). Reports "intent to overdose" continued to have high stress. Then went to dorms and took a few pills. She spoke to her roommate who tried to calm her down. Medications were not in full effect. Then took a handful of pills and went to the library as she does not want to traumatize roommate. She finished the bottle in the library. Then she was writing a story about herself taking pills in case she survived. Then was unconscious and showed up in the hospital. Reports first time doing anything like this and denies past suicide attempts. Reports it was not worthwhile to have committed suicide. Says maybe a part of her did not want to end her life but was not sure how to cope. Preceding this event endorsed fair sleep, fair appetite, no notable anxiety, fair self-esteem, lack of self doubt. Denies drug and alcohol use. Reports having a good childhood and denies neglect or abuse. Denies having OCD obsessions or tendencies. Reports future plans to get into the pharmaceutical industry or medical technologies and is also considering becoming a physician. Reports in the past has difficulty in relationships and pushes people away. "Maybe" fear of abandonment. Complains of feelings of emptiness. He denies past self-harm or impulsivity. Some feelings of emptiness. Not interested in medications at this time. Physical Exam Mental Examination Appearance: Well Groomed Eye Contact: Maintains Eye Contact Motor Behavior: Unremarkable Speech: Normal and Soft Mood: Anxious and Crying Affect: Constricted Thought Process: Intact (guarded) and Circumstantial Thought Content: Intact (often rationalizes behaviors) and Linear Hallucinations: None Insight: Poor Judgement: Poor Vital Signs (Past 24 Hours) Last Vital Signs Temp 36.9 C 01/23/24 06:37 Pulse 87 01/23/24 06:37 Resp 16 01/23/24 06:37 BP 111/74 01/23/24 06:37 Pulse Ox 99 01/21/24 15:04 O2 Del Method Room Air 01/21/24 15:04 Results & Data ([facility]) Current Inpatient Medications Current Inpatient Medications: Current Inpatient Medications Acetaminophen (Acetaminophen 325 Mg Tab) 650 mg PO Q4H PRN PRN Reason: Headache or Minor Fever Stop: 02/20/24 14:56 Al Hydrox/Mg Hydrox/Simethicone (Aluminum/Magnesium Susp 30 Ml Udc) 30 ml PO Q4H PRN PRN Reason: GI Upset Stop: 02/20/24 14:56 Bismuth Subsalicylate (Bismuth Subsalicylate 262 Mg Chew) 2 tab PO Q30M PRN PRN Reason: Loose Stool/Diarrhea Stop: 02/20/24 14:56 Hydroxyzine HCl (Hydroxyzine Hcl 25 Mg Tab) 25 mg PO HSZ PRN PRN Reason: Insomnia Stop: 02/20/24 14:56 Hydroxyzine HCl (Hydroxyzine Hcl 10 Mg Tab) 10 mg PO Q4H PRN PRN Reason: Anxiety Stop: 02/20/24 14:56 Magnesium Hydroxide (Magnesium Hydroxide Susp 30 Ml Udc) 30 ml PO DAILY PRN PRN Reason: Constipation Stop: 02/20/24 14:56 Sodium Chloride (Sodium Chloride 0.65% Na Soln 45 Ml ([place])) 1 - 2 sprays NA PRN PRN PRN Reason: Nasal Dryness/Congestion Stop: 02/20/24 14:56 Mental Health & Subst Abuse Tx Psychiatrist Name of Psychiatrist: [facility] Psychiatrist's Date Of Appointment With Psychiatric Provider: 01/26/24 Time of Appointment with Psychiatrist: 3PM Psychiatric Appointment Comment: Virtual Post Discharge Appointments Other #1: Name of Aftercare Appointment: Student Care & Advocacy - [facility] post hospitalization meeting Phone Number of Aftercare Appointment: [phone] Date of Aftercare Appointment: 01/26/24 Time of Aftercare Appointment: 2PM
--- NOTE | 2024-01-24 13:48 | Psychiatric Progress Note ---
Date of Service January 24, 2024 Impression / Recommendations Impression ARY GARCIA is a 18-year-old woman and [employer] student who currently lives on campus, has no formal psychiatric history, and was admitted on 01/21/24 14:42 on a 201 voluntary commitment for suicide attempt via diphenhydramine overdose with subsequent seizure and required medical admission for stabilization. A: Patient presents stable mood and is future oriented and is reflecting on her recent actions. She completed screening instrument for borderline personality disorder and reports recent suicide attempt and chronic feelings of emptiness. Would highly benefit from intensive outpatient program after discharge and has an intake on Thursday. Overall, I spent a total of 30 minutes with this case including review of chart records, nursing report, review of lab work, direct evaluation of the patient at bedside, counseling the patient, multidisciplinary team meeting, orders, and documentation in the electronic health record. (1) Suicide attempt by drug ingestion: (2) Anxiety: (3) Depression: (4) Cluster B personality disorder: Plan 12/24/2023: Continue treatment plan. 01/23/2024: Borderline personality questionnaire 01/22/2024:The patient was admitted to the [facility] ([facility]) on q15 min checks (behavioral with suicide precautions) for safety. The patient will participate in group, recreational, and milieu therapies and will be offered additional individual and family sessions as clinically appropriate. -Focus on improving coping skills, increasing insight and helping her become more aware of her emotions/thoughts/behaviors. -working on establishing outpatient therapist Inventory Assets Strengths: supportive relationships, willing to get treatment Needs: safety and stabilization, medication adjustment, additional coping skills, increased outpatient services Suicide Risk Level Suicide Risk Level: High-Moderate (q15 min suicide checks) (s/p serious impulsive suicide attempt but encouragingly is now feeling glad to be alive, denies current SI and feels safe and able to ask for support) Risk Factors Assessment Male: No : No Do You Have Access To A Gun?: No Health Problems: No Mental Health Diagnoses: Yes Substance Use Disorders: No Previous Attempt: Yes Family History of Suicide: No Previous Psychiatric Hospitalization: No Hopelessness: No Protective Factors Assessment Employed: No (but student) Stable Relationships: Yes Supportive Family: Yes Interval History Identifying Information ARY GARCIA is a 18-year-old woman and [employer] student who currently lives on campus, has no formal psychiatric history, and was admitted on 01/21/24 14:42 on a 201 voluntary commitment for suicide attempt via diphenhydramine overdose with subsequent seizure and required medical admission for stabilization. Chief Complaint "Doing well" Review of Systems Sleep Information Total Hours of Sleep: 7 Meal Information Percent Meal Consumed - Breakfast: 100 Percent Meal Consumed - Lunch: 100 Percent Meal Consumed - Dinner: 100 Subjective Subjective Patient was seen & assessed and interval progress reviewed with treatment team nursing and social work Nursing reports patient often isolates from her peers. Seeks regular assurance. Has been engaging in self-care. Upcoming [facility] intake on the . Patient reports sleeping well and feeling "okay". She denies SI or feelings of self-harm. Reports that the recent suicide attempt was "impulsive" and that it was not the appropriate actions to take given the circumstance. [place] that it was "anxiety related". We explore other ways to handle distressing emotions and she plans to call family or friends in the future. Educated about IOP and what it entails. Physical Exam Mental Examination Appearance: Well Groomed Eye Contact: Maintains Eye Contact Motor Behavior: Unremarkable Speech: Normal and Soft Mood: Anxious Affect: Constricted Thought Process: Intact (guarded) and Circumstantial Thought Content: Intact (often rationalizes behaviors) and Linear Hallucinations: None Insight: Poor Judgement: Poor Vital Signs (Past 24 Hours) Last Vital Signs Temp 36.9 C 01/24/24 06:44 Pulse 102 H 01/24/24 06:45 Resp 16 01/24/24 06:44 BP 104/67 01/24/24 06:45 Pulse Ox 99 01/21/24 15:04 O2 Del Method Room Air 01/21/24 15:04 Results & Data ([facility]) Current Inpatient Medications Current Inpatient Medications: Current Inpatient Medications Acetaminophen (Acetaminophen 325 Mg Tab) 650 mg PO Q4H PRN PRN Reason: Headache or Minor Fever Stop: 02/20/24 14:56 Al Hydrox/Mg Hydrox/Simethicone (Aluminum/Magnesium Susp 30 Ml Udc) 30 ml PO Q4H PRN PRN Reason: GI Upset Stop: 02/20/24 14:56 Bismuth Subsalicylate (Bismuth Subsalicylate 262 Mg Chew) 2 tab PO Q30M PRN PRN Reason: Loose Stool/Diarrhea Stop: 02/20/24 14:56 Hydroxyzine HCl (Hydroxyzine Hcl 25 Mg Tab) 25 mg PO HSZ PRN PRN Reason: Insomnia Stop: 02/20/24 14:56 Hydroxyzine HCl (Hydroxyzine Hcl 10 Mg Tab) 10 mg PO Q4H PRN PRN Reason: Anxiety Stop: 02/20/24 14:56 Magnesium Hydroxide (Magnesium Hydroxide Susp 30 Ml Udc) 30 ml PO DAILY PRN PRN Reason: Constipation Stop: 02/20/24 14:56 Sodium Chloride (Sodium Chloride 0.65% Na Soln 45 Ml ([place])) 1 - 2 sprays NA PRN PRN PRN Reason: Nasal Dryness/Congestion Stop: 02/20/24 14:56 Mental Health & Subst Abuse Tx Psychiatrist Name of Psychiatrist: [facility] Psychiatrist's Date Of Appointment With Psychiatric Provider: 01/26/24 Time of Appointment with Psychiatrist: 3PM Psychiatric Appointment Comment: Virtual Post Discharge Appointments Other #1: Name of Aftercare Appointment: Student Care & Advocacy - [facility] post hospitalization meeting Phone Number of Aftercare Appointment: [phone] Date of Aftercare Appointment: 01/26/24 Time of Aftercare Appointment: 2PM
[2024-01-25 06:41] VITALS: BP 104/66; TEMP 98.6
--- NOTE | 2024-01-25 09:33 | Discharge Summary ---
Date of Service January 25, 2024 History of Present Illness She presents for psychiatric admission for suicide attempt via diphenhydramine overdose in the context of psychosocial stressors including academic stress and fear of failing a perquisite class. Reports feeling demoralized due to not achieving expected academic results despite significant effort. She feels it was a [id number]-moment decision, and she did not feel particularly depressed or anxious beforehand. She describes feeling better today and acknowledges feeling happy to have survived the incident but also feels guilty for causing worry to her parents and roommate. She is tearful and reflects on getting emotional when discussing the incident, stating it was due to putting in a lot of effort without seeing the desired results. She reflects that typically it wouldn't have been her "first instinct to go to that extreme" but felt that she couldn't have done any more to study and thinks this is why she felt so hopeless. Continues to emphasize that it was an impulsive attempt. Denies feeling depressed prior to sudden intense emotional distress of feeling like she did poorly on the exam. Still hasn't gotten her grade back from the exam to confirm if her suspicion of doing poorly is accurate. She denies significant mood symptoms prior to the attempt feels it was "a spur of the moment thing". She's interested in finding better ways to cope with stress. She endorses anxiety symptoms including excessive worry, restlessness, puts a lot of pressure on herself. Denies history of panic attacks but unclear if heightened emotions and distress following exam may have been consistent with a panic attack. Reports she wasn't sleeping well the few nights before her exam because that is usually when she catches up with her roommate and sometimes they are up late talking. On average she thinks she gets 6-7 hours of sleep per night . She is not currently prescribed any psychiatric medications. Psychiatric ROS notable for no current nor history of symptoms of patricia, psychosis, PTSD, OCD nor eating disorder nor self-harm. Further recent history per my consult note on 01/21/2024: "Reports that she studied a lot for an exam for a difficult class and then felt very "demoralized" after she took the exam on 01/18/2024 and "thought I hadn't done well". She then went to [facility] and decided to buy a bottle of "diphenhydramine" which she believed as "sleeping pills so would knock me out". Confirms that she took the medication as a means of "committing suicide" and that while she did not research potential lethality assumed it would work to kill her since it was a sedating medication. She recalls feeling "really upset" about the exam and then thinks she took the pills in her dorm and then somehow ended up at the library thought she doesn't recall going to the library or the events that occurred there until arriving at the hospital. Reports she took the whole bottle. Asked how she feels about being alive reports she "regrets" the attempt because "being the hospital, this all feels like it was a whole waste of time". She hasn't yet told her parents about the attempt because she worries they will "blame themselves". She feels her parents are supportive and gives me permission to discuss her attempt with her father. Discussed treatment recommendation of inpatient psychiatric treatment and she is in agreement with this. She denies any prior suicide attempts. No prior psychiatric or mental health treatment, diagnoses nor medications. Denies substance use. We had her father come back into the room and discussed with him, with Zeina also present, what she had shared with me and plan for inpatient psychiatric treatment. He is supportive of this. He adds collateral that she hadn't been sleeping well recently due to roommate being disruptive and that Zeina had spoken to him about how stressed and overwhelmed she was about her exam and difficult course. " Physical Exam Mental Examination Appearance: Well Groomed Eye Contact: Maintains Eye Contact Motor Behavior: Unremarkable Speech: Normal and Soft Mood: Euthymic and Calm Affect: Constricted Thought Process: Intact (guarded) Thought Content: Intact (often rationalizes behaviors) and Linear Hallucinations: None Insight: Poor (to limited, improved) Judgement: Poor (to limited, improved) Vital Signs (Past 24 Hours) Last Vital Signs Temp 37 C 01/25/24 06:37 Pulse 103 H 01/25/24 06:38 Resp 16 01/25/24 06:37 BP 104/66 01/25/24 06:38 Pulse Ox 99 01/21/24 15:04 O2 Del Method Room Air 01/21/24 15:04 Principal Diagnosis Adjustment disorder Psychiatric Data See daily stay summary. In short, safety was maintained and the patient was cooperative with care. Pt declined psychiatric medications and preferred counseling. A family session was held and safety plan was completed prior to discharge. She presented regret for her recent overdose (which resulted in 1st time seizure and delirium) and noted it was a impulsive act to deal with distress after ruminating fears of failing her class. She was counseled about distress tolerance, coping skills, and referred to [facility] for counseling. She presented a resolution of SI during her hospitalization, was future oriented towards returning to her school work, felt hopeful for the future, and was expressive about her feelings and thoughts. Day of Discharge Assessment Today the patient voices readiness for discharge. They note improvement in mood and deny thoughts to harm self or others. Thoughts remain organized and they are improved from admission. There is no evidence of psychosis. They agree to take mediations as prescribed and keep follow-up appointments. They are stable for discharge to outpatient level of care. Transition of Care Transition Of Care Record: was reviewed with the patient Advance Directives Advance Directives Information Provided: Yes Advance Directives: No Mental Health Advance Directive: No Advance Directives on File: No Living Will: No Power of Steam Fitter Supervisor Maintenance: No Advance Directives Reason:: Declines as Mental Health Visit. Risk Factors Assessment Male: No : No Do You Have Access To A Gun?: No Health Problems: No Mental Health Diagnoses: Yes Substance Use Disorders: No Previous Attempt: Yes Family History of Suicide: No Previous Psychiatric Hospitalization: No Hopelessness: No Protective Factors Assessment Employed: No (but student) Stable Relationships: Yes Supportive Family: Yes Hospital Course (1) Suicide attempt by drug ingestion: (2) Adjustment disorder: (3) Cluster B personality disorder: Plan 12/24/2023: Continue treatment plan. 01/23/2024: Borderline personality questionnaire 01/22/2024:The patient was admitted to the [facility] ([facility] unit) on q15 min checks (behavioral with suicide precautions) for safety. The patient will participate in group, recreational, and milieu therapies and will be offered additional individual and family sessions as clinically appropriate. -Focus on improving coping skills, increasing insight and helping her become more aware of her emotions/thoughts/behaviors. -working on establishing outpatient therapist Mental Health & Subst Abuse Tx Psychiatrist Name of Psychiatrist: [facility] Psychiatrist's Date Of Appointment With Psychiatric Provider: 01/26/24 Time of Appointment with Psychiatrist: 3PM Psychiatric Appointment Comment: Virtual Post Discharge Appointments Other #1: Name of Aftercare Appointment: Student Care & Advocacy - [facility] post hospitalization meeting Phone Number of Aftercare Appointment: [phone] Date of Aftercare Appointment: 01/26/24 Time of Aftercare Appointment: 2PM Discharge Plan Discharge Items Patient Disposition: Home - Self-Care Reason For Visit: UNSPECIFIED DEPRESSIVE DISORDER Discharge Diagnosis: Adjustment Disorder Cluster B Personality Disorder Condition on Discharge: Fair Activity: Resume your previous activity Non-emergency contact: Primary Care Provider and Therapist Call non-emergency contact if: you have any medication questions and your sym ptoms worsen Follow-up/Referrals: Ann Elena MD [Primary Care Provider] - Diet: Regular Addtl Attending Provider Instructions: -Engage in intensive outpatient program for structured therapy Pending Studies at Discharge: No Stand-Alone Forms: [facility] [place] [employer], Smoking Cessation Medications and DC Order Prescriptions: New hydroxyzine HCl 10 mg Tablet 10 mg PO Q4H PRN (Reason: anxiety) Qty: 30 0RF Discharge Orders: Discharge Order (Routine); Ordered 01/25/24 Ordered By: Jean Marie Admission Data Admit Date/Time: 01/21/24 14:42 Attending Provider: Jean Marie Admit Provider: Shruti Aparicio Primary Care Provider: Ann Elena Other Interventions: Discharge Summary Assessment (RN) Last Done: 01/25/24 10:31 PSY Interdisciplinary Discharge Planning Last Done: 01/25/24 10:31 Coding [place] [address] D/C day mgmt 30 min or < Patient Type Established History Expanded Problem Focused Exam Expanded Problem Focused Medical Decision Making Low Complexity Diagnoses Suicide attempt by drug ingestion T50.902A Adjustment disorder F43.20 Cluster B personality disorder F60.89
[2024-01-25 10:30] VITALS: PULSE 77
== END 2024-01-25 11:00 | disposition home or self-care (01) | DRG 882 ==
LOC: SUATTDRO 14:42 → 3S 14:42